=== PATIENT | male | born 1960 | race Caucasian/White ===

== ENCOUNTER → 2017-01-11 | Outpatient (CLI) | payer BC ==
[~2017-01-11] MED LIST: CPR500T PO; CYCL10TA9 PO; DOXY100C2 PO; IBUP-30 PO; KETO10TA PO; LEVO500T2 PO; MULT-35 PO; PRD10T PO; RIVA1TAB PO; TRAM-42 PO
--- OUTSIDE RECORDS SUMMARY | 2017-01-11 08:42 | XMS REPORT | Continuity of Care Document ---
Author Author [facility] Organization [facility] Address Unknown Phone Unavailable Care Team Providers Care Photographic Processor Name Role Phone RolandRobbi PCP [phone] Source Comments Some departments are not documenting in the electronic medical record. If you do not see the information that you expected, contact Release of Information in the Health Information Management department at [phone] for further assistance in locating additional records.[facility] Active Allergies and Adverse Reactions No Known Allergies Current Medications Prescription Sig. Disp. Refills Start End Date Status Date ibuprofen (MOTRIN) 400 mg Take 200 mg by mouth Active tablet daily as needed for Pain. calcium carbonate (TUMS) Take 2,000 mg by mouth Active 500 mg (200 mg elemental daily. 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 Recurrent joint pain 08/02/2015 Social History Tobacco Use Types Packs/Day Years Used Date Never Smoker Smokeless Tobacco: Never Used Alcohol Use Drinks/Week oz/Week Comments No 0 Standard 0.0 drinks or equivalent Last Filed Vital Signs Vital Sign Reading Time Taken Blood Pressure 128/76 08/11/2015 2:24 PM CDT Pulse 76 08/11/2015 2:24 PM CDT Temperature 36.9 C (98.4 F) 08/11/2015 2:24 PM CDT Respiratory Rate 12 08/11/2015 2:24 PM CDT Height 1.88 m (6' 2") 08/11/2015 2:24 PM CDT Weight 96.163 kg (212 lb) 08/11/2015 2:24 PM CDT Body Mass Index 27.21 08/11/2015 2:24 PM CDT Oxygen Saturation - - Plan of Care Health Maintenance Due Date Last Done Comments Hepatitis C Screening 1960 Physical (Comprehensive) 1965 Exam Pertussis Vaccine 1969 Tetanus Vaccine 1975 Colorectal Cancer 2008 Screening Influenza Vaccine 07/14/2016 Results from Last 3 Months Not on file
[2017-01-11 09:15] LABS: ALANINE AMINOTRANSFERASE 15 U/L (0-55); ALBUMIN 3.8 G/DL (3.2-4.5); ANION GAP 10 MMOL/L (5-14); ASPARTATE AMINO TRANSFERASE 18 U/L (5-34); BILIRUBIN,TOTAL 0.6 MG/DL (0.1-1.0); BLOOD UREA NITROGEN 11 MG/DL (7-18); BUN/CREATININE RATIO 11; CALCIUM 9.3 MG/DL (8.5-10.1); CARBON DIOXIDE 25 MMOL/L (21-32); CHLORIDE 106 MMOL/L (98-107); GFR ESTIMATED > 60; GLUCOSE 75 MG/DL (70-105); POTASSIUM 4.4 MMOL/L (3.6-5.0); SODIUM 141 MMOL/L (135-145); TOTAL PROTEIN 6.5 G/DL (6.4-8.2)
== END ==
LOC: LAB 08:40
PROVIDERS: ATTEND Internal Medicine Critical Care Medicine
DX: I26.99 Other pulmonary embolism without acute cor pulmonale (principal)
CPT/HCPCS: 36415; 80053

== ENCOUNTER → 2017-01-19 | Outpatient (CLI) | payer BC ==
[~2017-01-19] MED LIST changes: +CATHETER FLUSH 10 ML SYR IV PRN; +IOHEXOL 350 MG/ML 150 ML (OMNIPAQUE 350) VIAL IV ONE; +NS 100 ML (IVPB) BAG IV ONE
--- OUTSIDE RECORDS SUMMARY | 2017-01-19 11:50 | XMS REPORT | Continuity of Care Document ---
Author Author [facility] Organization [facility] Address Unknown Phone Unavailable Care Team Providers Care Transmission Specialist Name Role Phone RolandRobbi PCP [phone] Source Comments Some departments are not documenting in the electronic medical record. If you do not see the information that you expected, contact Release of Information in the Health Information Management department at [phone] for further assistance in locating additional records.[facility] Active Allergies and Adverse Reactions No [...]
--- NOTE | 2017-01-19 13:17 | Diagnostic Imaging Report ---
INDICATION: History of DVT in right popliteal vein. Right leg swelling in calf. Comparison study: Right lower extremity venous Doppler dated 07/07/2016. TECHNIQUE: Right lower extremity venous Doppler with color flow Doppler. Compression, augmentation, and grayscale imaging was obtained. FINDINGS: Right lower extremity venous Doppler demonstrates occlusive thrombus in the popliteal vein. This appears fairly similar to the previous exam from June. Remainder of the venous system appears normal. IMPRESSION: There is current or persistent thrombus which occludes the popliteal vein. Remainder of the deep venous system is normal. Dictated by: Dictated on workstation # [id number]
--- NOTE | 2017-01-19 16:05 | Diagnostic Imaging Report ---
PROCEDURE: CT angiography of the chest with contrast. TECHNIQUE: Multiple contiguous axial images were obtained through the chest after uneventful bolus administration of intravenous contrast. Reconstructed CTA MIP acquisitions were also performed. INDICATION: History of PE, right leg swelling, shortness of breath. COMPARISON: Exam compared with study from 08/12/2016 as well as 06/30/2016. FINDINGS: There were no intraluminal pulmonary arterial filling defects. There were no findings suggestive of recurrent pulmonary arterial embolus. The thoracic aorta is patent and nonaneurysmal. There is no pericardial effusion. There is a small hiatal hernia. A minute right pleural effusion is nearly resolved when compared to the prior. Right basilar infiltrate and atelectasis also show essential resolution with some likely mild residual chronic linear subpleural scarring. There has been no adverse interval development. No pneumothorax found. No acute soft tissue or osseous chest wall pathology. The visualized upper abdomen is nonacute. IMPRESSION: Negative for PE or acute aortic pathology. Near complete resolution of right posterior sulcal pleural-parenchymal opacity. Residual disease likely chronic. No adverse development or acute-appearing abnormality. Dictated by: Dictated on workstation # [id number]
== END ==
LOC: RAD 11:46
PROVIDERS: ATTEND Nurse Practitioner Family
DX: J90 Pleural effusion, not elsewhere classified (principal); M79.89 Other specified soft tissue disorders
CPT/HCPCS: 71275; 93970

== ENCOUNTER 2017-04-27 15:59 | Emergency (ER) | payer BC ==
[~2017-04-27] VITALS: Ht 188 cm; Wt 95.3 kg
[~2017-04-27 15:59] MED LIST changes: -CATHETER FLUSH 10 ML SYR IV PRN; -IOHEXOL 350 MG/ML 150 ML (OMNIPAQUE 350) VIAL IV ONE; -NS 100 ML (IVPB) BAG IV ONE
[2017-04-27 17:09] LABS: BASOPHILS # (AUTO) 0.2 10^3/uL (0.0-0.1); BASOPHILS % (AUTO) 2 % (0-10); EOSINOPHILS # (AUTO) 0.2 10^3/uL (0.0-0.3); EOSINOPHILS % (AUTO) 3 % (0-10); LYMPHOCYTES # (AUTO) 2.4 X 10^3 (1.0-4.0); LYMPHOCYTES % (AUTO) 33 % (12-44); MEAN CORPUSCULAR HEMOGLOBIN 30 PG (25-34); MEAN CORPUSCULAR HGB CONC 34 G/DL (32-36); MEAN CORPUSCULAR VOLUME 89 FL (80-99); MEAN PLATELET VOLUME 10.4 FL (7.4-10.4); MONOCYTES # (AUTO) 0.8 X 10^3 (0.0-1.0); MONOCYTES % (AUTO) 11 % (0-12); NEUTROPHILS # (AUTO) 3.7 X 10^3 (1.8-7.8); NEUTROPHILS % (AUTO) 51 % (42-75); PLATELET COUNT 202 10^3/uL (130-400); RED BLOOD COUNT 4.57 10^6/uL (4.35-5.85); RED CELL DISTRIBUTION WIDTH 12.9 % (10.0-14.5); WHITE BLOOD COUNT 7.3 10^3/uL (4.3-11.0)
[2017-04-27 17:10] LABS: BILIRUBIN,URINE NEGATIVE (NEGATIVE); KETONES,URINE NEGATIVE (NEGATIVE); LEUKOCYTE ESTERASE ,URINE 1+ (NEGATIVE); NITRITE,URINE NEGATIVE (NEGATIVE); PH,URINE 5 (5-9); PROTEIN,URINE 2+ (NEGATIVE); UROBILINOGEN,URINE NORMAL (NORMAL)
[2017-04-27] MEDS ORDERED: NS IV 1000 ML 1,000 ML IV SCH (17:15)
--- NOTE | 2017-04-27 17:20 | ED Abdominal Pain ---
General Chief Complaint: Abdominal/GI Problems Stated Complaint: ABD PAIN Nursing Triage Note: PT AMBULATED TO ROOM, PT STATES HE HAS HAD INCREASED ABD PAIN SINCE MONDAY. NO N/V OR ISSUES GOING TO THE BATHROOM AT THIS TIME. PT STATES HE HAS BEEN TAKING ALOT OF TYLENOL FOR THIS PAIN. PT ALSO COMPLAINS OF GENERALIZED BODY ACHES. Sepsis Screen: No Definite Risk Source of Information: Patient Exam Limitations: No Limitations History of Present Illness Time Seen By Provider: 17:19 Initial Comments To ER with periumbilical abdominal pain. This began last week in the form of diarrhea and diffuse body aches. He had low-grade fevers and just generally felt poorly. This followed a day trip to [facility]. The diarrhea seems to have resolved however his. Buccal abdominal pain has been intensifying over the past 2-3 days. He's been taking a lot of Tylenol to help with the body aches. He states he cannot take NSAIDs due to current use of xarelto from a pulmonary embolism last year Timing/Duration: 1-2 Days Severity/Quality: Cramping Location: Generalized Abdomen Radiation: No Radiation Activities at Onset: None Associated Symptoms: Nausea/Vomiting Allergies and Home Medications Allergies Coded Allergies: No Known Drug Allergies (Unverified , 05/18/13) Home Medications Multivitamin 1 Each Tablet, 1 TAB PO DAILY, (Reported) Rivaroxaban 1 Each Tab.ds.pk, 1 EACH PO UD, #51 15mg by mouth twice daily x 21 days then 20mg by mouth daily Prescribed by: TRISTIN VELASCO on 06/17/16 0657 Review of Systems Constitutional: see HPI EENTM: No Symptoms Reported Respiratory: No Symptoms Reported Cardiovascular: No Symptoms Reported Gastrointestinal: See HPI, Abdominal Pain Genitourinary: No Symptoms Reported Musculoskeletal: no symptoms reported Skin: no symptoms reported Psychiatric/Neurological: No Symptoms Reported Endocrine: No Symptoms Reported Past Xclyeic-Cuidew-Lxknjx Hx Patient Social History Alcohol Use: Denies Use Recreational Drug Use: No Smoking Status: Never a Smoker 2nd Hand Smoke Exposure: No Recent Foreign Travel: No Contact w/Someone Who Travel: No Recent Infectious Disease Expo: No Recent Hopitalizations: No Immunizations Up To Date Tetanus Booster (TDap): Unknown PED Vaccines UTD: No Seasonal Allergies Seasonal Allergies: Yes (RAGWEED) Surgeries HX Surgeries: Yes (RIGHT ANKLE FX/ORIF) Surgeries: Orthopedic Respiratory Hx Respiratory Disorders: No (STATES GETS UPPER RESP INFECTIONS FREQUENTLY) Cardiovascular Hx Cardiac Disorders: No Neurological Hx Neurological Disorders: No Reproductive System Hx Reproductive Disorders: No Sexually Transmitted Disease: No HIV/AIDS: No Genitourinary Hx Genitourinary Disorders: No Gastrointestinal Hx Gastrointestinal Disorders: Yes ("IF I EAT LATE, I GET REFLUX") Gastrointestinal Disorders: Gastroesophageal Reflux Musculoskeletal Hx Musculoskeletal Disorders: Yes (R ANKLE FX/CHRONIC PAIN) Musculoskeletal Disorders: Fractures Endocrine Hx Endocrine Disorders: No HEENT HX ENT Disorders: No Cancer Hx Cancer: No Psychosocial Hx Psychiatric Problems: No Integumentary HX Skin/Integumentary Disorder: No Blood Transfusions Hx Blood Disorders: No Family Medical History Family Medial History: FH: COPD (chronic obstructive pulmonary disease) 19 FATHER, , Age:78, Onset:Unknown FH: breast cancer G8 SISTER, Onset:Unknown FH: lung cancer 19 FATHER, , Age:78, Onset:Unknown Physical Exam Vital Signs VS - Last 72 Hours, by Label 04/27/17 16:28 Temp 98.2 Pulse 87 Resp 20 B/P (MAP) 126/77 Pulse Ox 95 O2 Delivery Room Air Capillary Refill : Less Than 3 Seconds General Appearance: WD/WN, no apparent distress HEENT: PERRL/EOMI, normal ENT inspection Neck: non-tender, full range of motion Respiratory: no respiratory distress, no accessory muscle use Gastrointestinal: normal bowel sounds, non tender, soft Extremities: normal range of motion, non-tender Neurologic/Psychiatric: alert, normal mood/affect, oriented x 3 Skin: normal color, warm/dry Progress/Results/Core Measures Results/Orders Lab Results Laboratory Tests Test 04/27/17 16:22 04/27/17 16:46 Range/Units Urine Color YELLOW Urine Clarity CLEAR Urine pH 5 5-9 Urine Specific [place] 1.025 H 1.016-1.022 Urine Protein 2+ H NEGATIVE Urine Glucose (UA) NEGATIVE NEGATIVE Urine Ketones NEGATIVE NEGATIVE Urine Nitrite NEGATIVE NEGATIVE Urine Bilirubin NEGATIVE NEGATIVE Urine Urobilinogen NORMAL NORMAL MG/DL Urine Leukocyte Esterase 1+ H NEGATIVE Urine RBC (Auto) NEGATIVE NEGATIVE Urine RBC NONE /HPF Urine WBC 2-5 /HPF Urine Squamous Epithelial Cells NONE /HPF Urine Crystals NONE /LPF Urine Bacteria NEGATIVE /HPF Urine Casts NONE /LPF Urine Mucus LARGE H /LPF Urine Culture Indicated NO White Blood Count 7.3 4.3-11.0 10^3/uL Red Blood Count 4.57 4.35-5.85 10^6/uL Hemoglobin 13.8 13.3-17.7 G/DL Hematocrit 41 40-54 % Mean Corpuscular Volume 89 80-99 FL Mean Corpuscular Hemoglobin 30 25-34 PG Mean Corpuscular Hemoglobin Concent 34 32-36 G/DL Red Cell Distribution Width 12.9 10.0-14.5 % Platelet Count 202 130-400 10^3/uL Mean Platelet Volume 10.4 7.4-10.4 FL Neutrophils (%) (Auto) 51 42-75 % Lymphocytes (%) (Auto) 33 12-44 % Monocytes (%) (Auto) 11 0-12 % Eosinophils (%) (Auto) 3 0-10 % Basophils (%) (Auto) 2 0-10 % Neutrophils # (Auto) 3.7 1.8-7.8 X 10^3 Lymphocytes # (Auto) 2.4 1.0-4.0 X 10^3 Monocytes # (Auto) 0.8 0.0-1.0 X 10^3 Eosinophils # (Auto) 0.2 0.0-0.3 10^3/uL Basophils # (Auto) 0.2 H 0.0-0.1 10^3/uL Sodium Level 138 135-145 MMOL/L Potassium Level 3.8 3.6-5.0 MMOL/L Chloride Level 103 98-107 MMOL/L Carbon Dioxide Level 24 21-32 MMOL/L Anion Gap 11 5-14 MMOL/L Blood Urea Nitrogen 15 7-18 MG/DL Creatinine 0.95 0.60-1.30 MG/DL Estimat Glomerular Filtration Rate > 60 BUN/Creatinine Ratio 16 0-20 Glucose Level 113 H 70-105 MG/DL Calcium Level 9.1 8.5-10.1 MG/DL Total Bilirubin 0.6 0.1-1.0 MG/DL Aspartate Amino Transf (AST/SGOT) 21 5-34 U/L Alanine Aminotransferase (ALT/SGPT) 22 0-55 U/L Alkaline Phosphatase 76 40-136 U/L Total Creatine Kinase 68 30-200 U/L Total Protein 6.3 L 6.4-8.2 GM/DL Albumin 4.0 3.2-4.5 GM/DL Lipase 25 8-78 U/L My Orders Orders - CHURCH,PETER J [employer] Cbc With Automated Diff (04/27/17 16:50) Comprehensive Metabolic Panel (04/27/17 16:50) Lipase (04/27/17 16:50) Ua Culture If Indicated (04/27/17 16:50) Ct Abdomen/Pelvis W (04/27/17 16:50) Creatine Kinase (04/27/17 17:10) Ns Iv 1000 Ml (Sodium Chloride 0.9%) (04/27/17 17:15) Iohexol Injection (Omnipaque 350 Mg/Ml 1 (04/27/17 18:00) Ns (Ivpb) (Sodium Chloride 0.9% Ivpb Bag (04/27/17 18:00) Sodium Chloride Flush (Catheter Flush Sy (04/27/17 18:00) Morphine Injection (Morphine Injection (04/27/17 18:45) Lidocaine 2% Viscous 15 Ml (Xylocaine Vi (04/27/17 19:15) Antacid Suspension (Mylanta Suspension (04/27/17 19:15) Medications Given in ED Current Medications Medications Dose Ordered Sig/Haresh Route Start Time Stop Time Status Last Admin Dose Admin Iohexol 100 ml ONCE ONCE IV 04/27/17 18:00 04/27/17 18:02 DC 04/27/17 18:05 100 ML Morphine Sulfate 4 mg ONCE ONCE IVP 04/27/17 18:45 04/27/17 18:46 DC 04/27/17 18:41 4 MG Sodium Chloride 10 ml NEEDED PRN IV 04/27/17 18:00 04/27/17 18:06 10 ML Sodium Chloride 100 ml ONCE ONCE IV 04/27/17 18:00 04/27/17 18:02 DC 04/27/17 18:06 80 ML Vital Signs/I&O Vital Sign - Last 12Hours 04/27/17 16:28 Temp 98.2 Pulse 87 Resp 20 B/P (MAP) 126/77 Pulse Ox 95 O2 Delivery Room Air Blood Pressure Mean: 93 Diagnostic Imaging Diagonstic Imaging: CT Comments NAME: ИВАНVIVIEN Levi [facility] REC#: [id number] PT STATUS: REG ER : 1960 PHYSICIAN: LEANNA CHURCH [employer] ADMIT DATE: 04/27/17/ER Draft Date of Exam:04/27/17 CT ABDOMEN/PELVIS W PROCEDURE: CT abdomen and pelvis with contrast. TECHNIQUE: Multiple contiguous axial images were obtained through the abdomen and pelvis after administration of intravenous contrast. INDICATION: Abdominal pain. COMPARISON: Study of 01/19/2017. FINDINGS: There has been mild increase in dependent atelectasis in the lung bases. Note is made of low-density throughout the liver, however, no focal hepatic or splenic abnormality is identified. Gallstones in the neck of the gallbladder are again noted. There is no biliary ductal dilatation. There is no evidence of pancreatic lesion. Adrenal glands are stable and unremarkable. There is no evidence of renal abnormality. There is good opacification of mesenteric and renal arteries without evidence of stenosis or filling defect. There is no free fluid in the abdomen or pelvis. Partially opacified urinary bladder is unremarkable. Iliofemoral arteries are widely patent into the upper thigh. There is herniation of fat into the left inguinal canal. No bowel hernia is identified. IMPRESSION: 1. No evidence of acute vascular abnormality in the abdomen or pelvis. Appendix has a normal appearance and there is no evidence of inflammation or suspicious fluid collection. 2. There is mild dependent atelectasis in the lung bases. Dictated on workstation # [id number] Dict: 04/27/17 1820 Trans: 04/27/17 1838 [facility] [id number] Interpreted by: LIZZY HICKS MD Electronically signed by: Departure Impression Impression: Primary Impression: abdominal pain Additional Impression: Gastritis Disposition: 01 HOME, SELF-CARE Condition: Stable Departure-Patient Inst. Decision time for Depature: 19:16 Referrals: SHANE VELASCO MD (PCP/Family) Primary Care Physician Patient Instructions: Peptic Ulcers (DC) Add. Discharge Instructions: 1. Medication as directed 2. Return to ER for any concerns 3. See your doctor next week for follow-up All discharge instructions reviewed with patient and/or family. Voiced understanding. Scripts Famotidine (Pepcid) 20 Mg Tablet 20 MG PO DAILY, #14 TAB Prov: LEANNA CHURCH [employer] 04/27/17 Pantoprazole Sodium (Protonix) 40 Mg Tablet.dr 40 MG PO DAILY, #20 TAB Prov: LEANNA CHURCH [employer] 04/27/17 LEANNA CHURCH APRN Apr 27, 2017 17:20
[2017-04-27 17:36] LABS: ALANINE AMINOTRANSFERASE 22 U/L (0-55); ANION GAP 11 MMOL/L (5-14); ASPARTATE AMINO TRANSFERASE 21 U/L (5-34); BILIRUBIN,TOTAL 0.6 MG/DL (0.1-1.0); BLOOD UREA NITROGEN 15 MG/DL (7-18); BUN/CREATININE RATIO 16 (0-20); CALCIUM 9.1 MG/DL (8.5-10.1); CARBON DIOXIDE 24 MMOL/L (21-32); CHLORIDE 103 MMOL/L (98-107); CREATININE SERUM 0.95 MG/DL (0.60-1.30); GFR ESTIMATED > 60; GLUCOSE 113 MG/DL (70-105); HEMOLYSIS 6 (0-29); ICTERUS 0.6 (0-1.9); LIPASE 25 U/L (8-78); LIPEMIA 3 (0-49); POTASSIUM 3.8 MMOL/L (3.6-5.0); SODIUM 138 MMOL/L (135-145); TOTAL PROTEIN 6.3 GM/DL (6.4-8.2)
[2017-04-27] MEDS ORDERED: CATHETER FLUSH 10 ML SYR IV PRN (18:00)
[2017-04-27] MEDS ORDERED: IOHEXOL 350 MG/ML 100 ML (OMNIPAQUE 350) VIAL IV ONE (18:00)
[2017-04-27] MEDS ORDERED: NS 100 ML (IVPB) BAG IV ONE (18:00)
--- NOTE | 2017-04-27 18:38 | Diagnostic Imaging Report ---
PROCEDURE: CT abdomen and pelvis with contrast. TECHNIQUE: Multiple contiguous axial images were obtained through the abdomen and pelvis after administration of intravenous contrast. INDICATION: Abdominal pain. COMPARISON: Study of 01/19/2017. FINDINGS: There has been mild increase in dependent atelectasis in the lung bases. Note is made of low-density throughout the liver, however, no focal hepatic or splenic abnormality is identified. Gallstones in the neck of the gallbladder are again noted. There is no biliary ductal dilatation. There is no evidence of pancreatic lesion. Adrenal glands are stable and unremarkable. There is no evidence of renal abnormality. There is good opacification of mesenteric and renal arteries without evidence of stenosis or filling defect. There is no free fluid in the abdomen or pelvis. Partially opacified urinary bladder is unremarkable. Iliofemoral arteries are widely patent into the upper thigh. There is herniation of fat into the left inguinal canal. No bowel hernia is identified. IMPRESSION: 1. No evidence of acute vascular abnormality in the abdomen or pelvis. Appendix has a normal appearance and there is no evidence of inflammation or suspicious fluid collection. 2. There is mild dependent atelectasis in the lung bases. Dictated by: Dictated on workstation # [id number]
[2017-04-27] MEDS ORDERED: morphine INJ 10 MG/ML 1ML (SYR OR VIAL) IVP ONE (18:45)
[2017-04-27] MEDS ORDERED: ANTACID SUSP 30 ML UDC (MYLANTA) PO ONE (19:15)
[2017-04-27] MEDS ORDERED: LIDOCAINE 2% VISCOUS 15 ML UDC PO ONE (19:15)
[2017-04-27] MEDS ORDERED: PANT40TA2 PO (19:17)
[2017-04-27] MEDS ORDERED: FAMO-119 PO (19:17)
[2017-04-27 19:33] VITALS: BP 126/77
== END 2017-04-27 19:33 | disposition home or self-care (01) ==
LOC: EDUNIT# 15:59 → ER 16:00
DX: K29.70 Gastritis, unspecified, without bleeding (principal)
CPT/HCPCS: 36415; 74177; 80053; 81000; 82550; 83690; 85025

== ENCOUNTER → 2017-08-04 | Outpatient (CLI) | payer BC ==
[~2017-08-04] MED LIST changes: +FAMO-119 PO; +PANT40TA2 PO
[2017-08-04 09:17] LABS: ALANINE AMINOTRANSFERASE 32 U/L (0-55); ANION GAP 8 MMOL/L (5-14); ASPARTATE AMINO TRANSFERASE 26 U/L (5-34); BILIRUBIN,TOTAL 0.6 MG/DL (0.1-1.0); BLOOD UREA NITROGEN 16 MG/DL (7-18); BUN/CREATININE RATIO 15; CALCIUM 9.4 MG/DL (8.5-10.1); CARBON DIOXIDE 26 MMOL/L (21-32); CHLORIDE 105 MMOL/L (98-107); CREATININE SERUM 1.04 MG/DL (0.60-1.30); GFR ESTIMATED > 60; GLUCOSE 106 MG/DL (70-105); POTASSIUM 4.1 MMOL/L (3.6-5.0); SODIUM 139 MMOL/L (135-145); TOTAL PROTEIN 7.4 GM/DL (6.4-8.2)
== END ==
LOC: LAB 08:43
PROVIDERS: ATTEND Nurse Practitioner Family
DX: M79.89 Other specified soft tissue disorders (principal); R06.02 Shortness of breath; Z86.718 Personal history of other venous thrombosis and embolism
CPT/HCPCS: 36415; 80053

== ENCOUNTER → 2017-09-06 | Outpatient (CLI) | payer BC ==
--- NOTE | 2017-09-06 10:58 | Diagnostic Imaging Report ---
EXAMINATION: Bilateral lower extremity duplex venous ultrasound. TECHNIQUE: DVT protocol. Multiple sonographic images with color Doppler and waveform interrogation were performed of the lower extremity veins, bilaterally, with compression and augmentation maneuvers. INDICATION: Followup right popliteal vein DVT. FINDINGS: The lower extremity veins from the common femoral veins to below the knee veins were examined with normal color-flow, compressibility, and normal waveform demonstrated in the left lower extremity. There is only partial compressibility of the right popliteal vein which demonstrates nonocclusive thrombus involving a segment that is about 3 cm in length. This appears similar to the previous examination from 01/19/2017. The remaining right lower extremity veins including the common femoral, profunda, femoral vein, and great saphenous vein appear patent. The right peroneal trunk and posterior tibial veins are patent. IMPRESSION: 1. 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 2. No evidence of DVT in the left lower extremity. Dictated by: Dictated on workstation # [id number]
== END ==
LOC: RAD 09:09
PROVIDERS: ATTEND Nurse Practitioner Family
DX: I82.431 Acute embolism and thrombosis of right popliteal vein (principal)
CPT/HCPCS: 93970

== ENCOUNTER 2018-05-31 13:16 | Emergency (ER) | payer BC ==
[~2018-05-31] VITALS: Ht 185.4 cm; Wt 95.3 kg
[2018-05-31 14:07] LABS: BASOPHILS # (AUTO) 0.1 10^3/uL (0.0-0.1); BASOPHILS % (AUTO) 1 % (0-10); EOSINOPHILS # (AUTO) 0.2 10^3/uL (0.0-0.3); EOSINOPHILS % (AUTO) 2 % (0-10); HEMATOCRIT 44 % (40-54); LYMPHOCYTES % (AUTO) 23 % (12-44); MEAN CORPUSCULAR HEMOGLOBIN 31 PG (25-34); MEAN CORPUSCULAR HGB CONC 34 G/DL (32-36); MEAN CORPUSCULAR VOLUME 90 FL (80-99); MEAN PLATELET VOLUME 10.2 FL (7.4-10.4); MONOCYTES # (AUTO) 0.7 X 10^3 (0.0-1.0); MONOCYTES % (AUTO) 8 % (0-12); NEUTROPHILS # (AUTO) 5.7 X 10^3 (1.8-7.8); NEUTROPHILS % (AUTO) 66 % (42-75); PLATELET COUNT 229 10^3/uL (130-400); RED BLOOD COUNT 4.88 10^6/uL (4.35-5.85); RED CELL DISTRIBUTION WIDTH 13.5 % (10.0-14.5); WHITE BLOOD COUNT 8.6 10^3/uL (4.3-11.0)
[2018-05-31 14:13] LABS: BILIRUBIN,URINE NEGATIVE (NEGATIVE); CLARITY,URINE CLEAR; COLOR,URINE YELLOW; GLUCOSE, URINE (UA) NEGATIVE (NEGATIVE); KETONES,URINE NEGATIVE (NEGATIVE); LEUKOCYTE ESTERASE ,URINE NEGATIVE (NEGATIVE); NITRITE,URINE NEGATIVE (NEGATIVE); PH,URINE 7 (5-9); PROTEIN,URINE NEGATIVE (NEGATIVE); UROBILINOGEN,URINE NORMAL (NORMAL)
--- OUTSIDE RECORDS SUMMARY | 2018-05-31 14:15 | XMS REPORT | Clinical Summary ---
Author Author [facility] Organization [facility] Address Unknown Phone Unavailable Care Team Providers Care National Guard Member Name Role Phone Katherine Shetty MD Unavailable Unavailable Robbi Watkins MD PCP Source Comments Some departments are not documenting in the electronic medical record. If you do not see the information that you expected, contact Release of Information in the Health Information Management department at [phone] for further assistance in locating additional records.[facility] Allergies No Known Allergies Current Medications Prescription Sig. Disp. Refills Start End Date Status Date ibuprofen (MOTRIN) 400 mg Take 200 mg by mouth Active tablet daily as needed for Pain. calcium carbonate (TUMS) Take 2,000 mg by mouth Active 500 mg (200 mg elemental daily. calcium) chewable tablet chlorhexidine (HIBICLENS) wash body with 25cc (2 1 Bottle 2 08/11/20 Active 4 % topical TBS),rinse,repeat 15 liquidIndications: Hx wash,3x/week, if MRSA infection head/hair to be washed:wet body/hair,wash with 25cc close eyes rinse thoroughly Active Problems Problem Noted Date Rash 08/11/2015 Hx MRSA infection 08/02/2015 Recurrent joint pain 08/02/2015 Social History Tobacco Use Types Packs/Day Years Used Date Never Smoker Smokeless Tobacco: Never Used Alcohol Use Drinks/Week oz/Week Comments No 0 Standard 0.0 drinks or equivalent Sex Assigned at Date Recorded Not on file Last Filed Vital Signs Vital Sign Reading Time Taken Blood Pressure 128/76 08/11/2015 2:24 PM CDT Pulse 76 08/11/2015 2:24 PM CDT Temperature 36.9 C (98.4 F) 08/11/2015 2:24 PM CDT Respiratory Rate 12 08/11/2015 2:24 PM CDT Oxygen Saturation - - Inhaled Oxygen - - Concentration Weight 96.2 kg (212 lb) 08/11/2015 2:24 PM CDT Height 188 cm (6' 2") 08/11/2015 2:24 PM CDT Body Mass Index 27.22 08/11/2015 2:24 PM CDT Plan of Treatment Health Maintenance Due Date Last Done Comments HEPATITIS C SCREENING 1960 PHYSICAL (COMPREHENSIVE) 1965 EXAM PERTUSSIS VACCINE 1969 HIV SCREENING 1973 TETANUS VACCINE 1975 COLORECTAL CANCER 2008 SCREENING SHINGLES RECOMBINANT 2008 VACCINE (1 of 2) INFLUENZA VACCINE 08/13/2018 Results Not on filefrom Last 3 Months
--- NOTE | 2018-05-31 14:16 | ED General ---
General Chief Complaint: General Problems/Pain Stated Complaint: UPPER RIGHT ABD PAIN Nursing Triage Note: PATIENT HERE FOR CONCERNS ABOUT A PULMONARY EMBOLISM. HE HAD ONE TWO YEARS AGO AND IS NOT CURRENTLY ON XARELTO. HE SAW A CLINIC NEAR HIS WORK AND WAS TOLD HE HAD A PULM EFFUSION, HOWEVER THIS IS WHAT HE WAS TOLD TWO YEARS AGO WHEN IT ENDED UP BEING PE. PATIENT STATES HE FEELS EXACTLY THE SAME HE DID PRIOR TO HIS PE. Nursing Sepsis Screen: No Definite Risk Source of Information: Patient Exam Limitations: No Limitations History of Present Illness Date Seen by Provider: May 31, 2018 Time Seen by Provider: 13:27 Initial Comments This 57-year-old gentleman presents to the emergency room with complaints of right flank and lower lateral chest pain that started a couple of days ago. He has some associated shortness of breath. 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 Patient travels quite often driving to and from [place] for work. He was on Xarelto until last August. Patient saw a nurse practitioner near his work who performed a chest x-ray and felt he likely had a pleural effusion. He has had some mild cough and shortness of air in recent days but denies any fever. He denies any urine changes, nausea, vomiting, or diarrhea. He has quite anxious at the moment because of his prior history with DVT and PE. Allergies and Home Medications Allergies Coded Allergies: No Known Drug Allergies (Unverified , 05/18/13) Home Medications Multivitamin 1 Each Tablet, 1 TAB PO DAILY, (Reported) Patient Home Medication List Home Medication List Reviewed: Yes Review of Systems Constitutional: no symptoms reported EENTM: no symptoms reported Respiratory: see HPI Cardiovascular: see HPI Gastrointestinal: see HPI Genitourinary: no symptoms reported Musculoskeletal: no symptoms reported Skin: no symptoms reported Psychiatric/Neurological: See HPI Hematologic/Lymphatic: See HPI Immunological/Allergic: no symptoms reported Past Grqasrg-Alllka-Bfxxtw Hx Past Med/Social Hx: Reviewed and Corrections made Patient Social History Alcohol Use: Denies Use Recreational Drug Use: No Smoking Status: Never a Smoker 2nd Hand Smoke Exposure: No Recent Foreign Travel: No Contact w/Someone Who Travel: No Recent Infectious Disease Expo: No Recent Hopitalizations: No Physical Abuse: No Sexual Abuse: No Immunizations Up To Date Tetanus Booster (TDap): Unknown PED Vaccines UTD: No Seasonal Allergies Seasonal Allergies: Yes (RAGWEED) Past Medical History Surgeries: Yes (RIGHT ANKLE FX/ORIF) Orthopedic Respiratory: Yes Pulmonary Embolism Currently Using CPAP: No Currently Using BIPAP: No Cardiac: Yes Deep Vein Thrombosis Neurological: No Reproductive Disorders: No Sexually Transmitted Disease: No HIV/AIDS: No Genitourinary: No Gastrointestinal: Yes ("IF I EAT LATE, I GET REFLUX") Gastroesophageal Reflux Musculoskeletal: Yes (R ANKLE FX/CHRONIC PAIN) Fractures Endocrine: No HEENT: No Cancer: No Psychosocial: No Nursing Suicide Risk Score: 0 Integumentary: No Blood Disorders: No Family Medical History Reviewed Nursing Family Hx FH: COPD (chronic obstructive pulmonary disease) 19 FATHER, , Age:78, Onset:Unknown FH: breast cancer G8 SISTER, Onset:Unknown FH: lung cancer 19 FATHER, , Age:78, Onset:Unknown Physical Exam Vital Signs Vital Signs - First Documented 05/31/18 13:24 Temp 98.5 Pulse 81 Resp 18 B/P (MAP) 136/81 (99) Pulse Ox 96 Capillary Refill : Less Than 3 Seconds Height, Weight, BMI Height: 6'1.00" Weight: 210lbs. 0oz. 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) Neurologic/Psychiatric: Alert, Oriented x3, No Motor/Sensory Deficits, multi care technician II- XII Norm as Tested, Other (anxious) Skin: Normal Color, Warm/Dry Progress/Results/Core Measures Suspected Sepsis Recent Fever Within 48 Hours: No Infection Criteria Present: None New/Unexplained Altered Menta: No Sepsis Screen: No Definite Risk SIRS Temperature:98.5 Pulse: 81 Respiratory Rate: 18 Laboratory Tests 05/31/18 14:00: White Blood Count 8.6 Blood Pressure 136 /81 Mean: 99 Laboratory Tests 05/31/18 14:00: Creatinine 1.08, Platelet Count 229, Total Bilirubin 0.6 Results/Orders Lab Results Laboratory Tests Test 05/31/18 14:00 Range/Units White Blood Count 8.6 4.3-11.0 10^3/uL Red Blood Count 4.88 4.35-5.85 10^6/uL Hemoglobin 15.0 13.3-17.7 G/DL Hematocrit 44 40-54 % Mean Corpuscular Volume 90 80-99 FL Mean Corpuscular Hemoglobin 31 25-34 PG Mean Corpuscular Hemoglobin Concent 34 32-36 G/DL Red Cell Distribution Width 13.5 10.0-14.5 % Platelet Count 229 130-400 10^3/uL Mean Platelet Volume 10.2 7.4-10.4 FL Neutrophils (%) (Auto) 66 42-75 % Lymphocytes (%) (Auto) 23 12-44 % Monocytes (%) (Auto) 8 0-12 % Eosinophils (%) (Auto) 2 0-10 % Basophils (%) (Auto) 1 0-10 % Neutrophils # (Auto) 5.7 1.8-7.8 X 10^3 Lymphocytes # (Auto) 2.0 1.0-4.0 X 10^3 Monocytes # (Auto) 0.7 0.0-1.0 X 10^3 Eosinophils # (Auto) 0.2 0.0-0.3 10^3/uL Basophils # (Auto) 0.1 0.0-0.1 10^3/uL D-Dimer 0.39 0.00-0.49 UG/ML Urine Color YELLOW Urine Clarity CLEAR Urine pH 7 5-9 Urine Specific [place] 1.010 L 1.016-1.022 Urine Protein NEGATIVE NEGATIVE Urine Glucose (UA) NEGATIVE NEGATIVE Urine Ketones NEGATIVE NEGATIVE Urine Nitrite NEGATIVE NEGATIVE Urine Bilirubin NEGATIVE NEGATIVE Urine Urobilinogen NORMAL NORMAL MG/DL Urine Leukocyte Esterase NEGATIVE NEGATIVE Urine RBC (Auto) NEGATIVE NEGATIVE Urine RBC NONE /HPF Urine WBC NONE /HPF Urine Crystals PRESENT H /LPF Urine Amorphous Sediment FEW NAEEM PHOSPHATE H /LPF Urine Bacteria TRACE /HPF Urine Casts NONE /LPF Urine Mucus NEGATIVE /LPF Urine Culture Indicated NO Sodium Level 140 135-145 MMOL/L Potassium Level 4.5 3.6-5.0 MMOL/L Chloride Level 105 98-107 MMOL/L Carbon Dioxide Level 28 21-32 MMOL/L Anion Gap 7 5-14 MMOL/L Blood Urea Nitrogen 20 H 7-18 MG/DL Creatinine 1.08 0.60-1.30 MG/DL Estimat Glomerular Filtration Rate > 60 BUN/Creatinine Ratio 19 Glucose Level 105 70-105 MG/DL Calcium Level 10.1 8.5-10.1 MG/DL Total Bilirubin 0.6 0.1-1.0 MG/DL Aspartate Amino Transf (AST/SGOT) 25 5-34 U/L Alanine Aminotransferase (ALT/SGPT) 28 0-55 U/L Alkaline Phosphatase 76 40-136 U/L Total Protein 7.4 6.4-8.2 GM/DL Albumin 4.3 3.2-4.5 GM/DL My Orders Orders - LIDA MÉNDEZ MD Cbc With Automated Diff (05/31/18 13:46) Comprehensive Metabolic Panel (05/31/18 13:46) Fibrin Degradation Products (05/31/18 13:46) Ua Culture If Indicated (05/31/18 13:46) Saline Lock/Iv-Start (05/31/18 13:46) Chest Pa/Lat (2 View) (05/31/18 13:46) Us Gallbladder [id number] (05/31/18 13:46) Vital Signs/I&O 05/31/18 13:24 Temp 98.5 Pulse 81 Resp 18 B/P (MAP) 136/81 (99) Pulse Ox 96 Capillary Refill : Less Than 3 Seconds Blood Pressure Mean: 99 Progress Note : Progress Note Lab evaluation was unremarkable including d-dimer. Urine showed no evidence of hematuria to suggest ureteral stone. Chest x-ray noted probable scarring or atelectasis in the right lower lung. Effusion was not seen. Diagnostic Imaging Diagonstic Imaging: Xray Plain Films/CT/US/NM/MRI: chest Comments Chest x-ray viewed by me and report reviewed. See report below: NAME: VIVIEN OATES [facility] REC#: [id number] PT STATUS: REG ER : 1960 PHYSICIAN: LIDA MÉNDEZ MD ADMIT DATE: 05/31/18/ER Draft Date of Exam:05/31/18 CHEST PA/LAT (2 VIEW) INDICATION: Chest pain, history of prior pulmonary embolism. PA and lateral chest obtained at 02:49 p.m. and compared to 06/17/2016. Heart and mediastinal silhouette are normal in appearance. There is no focal infiltrate or pneumothorax or gross pleural fluid. There is some scarring or atelectasis in the right lung base with chronic blunting of the right costophrenic angle. IMPRESSION: No acute process in the chest. There is some mild scarring or atelectasis in the right lung base with chronic-appearing blunting of the right costophrenic angle. There is improved aeration of the lung bases compared to 06/17/2016. Dictated on workstation # [id number] Dict: 05/31/18 1434 Trans: 05/31/18 1439 [id number] Interpreted by: SALEEM SOLITARIO MD Diagonstic Imaging: Ultrasound Plain Films/CT/US/NM/MRI: abdomen Comments Gallbladder ultrasound report reviewed. See report below: NAME: VIVIEN OATES [facility] REC#: [id number] PT STATUS: REG ER : 1960 PHYSICIAN: LIDA MÉNDEZ MD ADMIT DATE: 05/31/18/ER Signed Date of Exam: 05/31/18 US GALLBLADDER [id number] EXAM: RIGHT UPPER QUADRANT ULTRASOUND. DATE: May 31, 2018. COMPARISON: CT abdomen and pelvis April 27, 2017. INDICATION: 57-year-old male, right upper quadrant abdominal pain. PROCEDURE: Two-dimensional grayscale and color Doppler ultrasound examination of the right upper quadrant is performed. FINDINGS: Liver: There is suspicion of diffuse fatty infiltration of the liver, although an image demonstrating the liver and kidney in the same image is not well demonstrated for more optimal assessment. The outer liver contours are not grossly nodular. There is no sonographically demonstrated solid or cystic liver lesion. Bile ducts and gallbladder: There are shadowing gallstones. The gallbladder is not distended. There is no gallbladder wall thickening. There is no pericholecystic fluid. The gallbladder wall measures 0.2 cm. The common bile duct is not well seen. There is no intrahepatic bile duct dilation. Right kidney: Unremarkable right kidney. No hydronephrosis. The right kidney measures 11.7 cm x 5.9 cm x 6.0 cm. Pancreas: The pancreas is not well seen. IMPRESSION: 1. Cholelithiasis without evidence of acute cholecystitis. 2. Common bile duct is not well visualized. No intrahepatic bile duct dilation. 3. The pancreas is not well seen. 4. Suspicion of mild diffuse fatty infiltration of the liver. Dictated by: Dictated on workstation # [id number] Dict: 05/31/18 1434 Trans: 05/31/18 1439 Interpreted by: LOIDA ANDRADE MD Electronically signed by: LOIDA ANDRADE MD 05/31/18 1439 Departure Impression Primary Impression: Cholelithiasis Qualified Codes: K80.20 - Calculus of gallbladder without cholecystitis without obstruction Additional Impression: Right upper quadrant pain Disposition: 01 HOME, SELF-CARE Condition: Stable Departure-Patient Inst. Decision time for Depature: 15:02 Referrals: SHANE VELASCO MD (PCP/Family) Primary Care Physician Patient Instructions: Gallstones Add. Discharge Instructions: Keep your appointment with Dr. Sun and have him review your chest x-rays. Eat a low-fat diet. You may take Tylenol up to 1000 mg every 6 hours and/or ibuprofen up to 600 mg every 6 hours as needed for pain. Return to care if symptoms are worsening or if you develop new symptoms such as vomiting, fever over 100, etc. Consider establishing with a general surgeon for evaluation of your gallstones. All discharge instructions reviewed with patient and/or family. Voiced understanding. Copy Copies To 1: BROCK SUN DO Copies To 2: SHANE VELASCO MD, JOSHUA T MD May 31, 2018 14:16
--- OUTSIDE RECORDS SUMMARY | 2018-05-31 14:17 | XMS REPORT | Continuity of Care Document ---
Author Author [facility] Organization [facility] Address Unknown Phone Unavailable Allergies Active Description Code Type Severity Reaction Onset Reported/Identified Relationship to Patient Clinical Status Yes No Known Drug Allergies [id number] Drug Allergy Unknown N/A 05/18/2013 Medications There is no data. Problems Date Dx Coded Attending Type Code Diagnosis Diagnosed By 05/18/2013 JAME OSORIO DO Ot 719.46 JOINT PAIN-L/LEG 05/18/2013 JAME OSORIO DO Ot 726.65 PREPATELLAR BURSITIS 06/17/2015 KRISTA HURST, SHANE R Ot 780.60 06/17/2015 KRISTA HURST, SHANE R Ot 780.8 06/17/2015 KRISTA HURST, SHANE R Ot 780.60 06/17/2015 KRISTA HURST, SHANE R Ot 780.8 06/18/2015 KRISTA HURST, SHANE R Ot 780.60 06/18/2015 KRISTA HURST, SHANE R Ot 780.8 06/18/2015 KRISTA HURST, SHANE R Ot 780.60 06/18/2015 KRISTA HURST, SHANE R Ot 780.8 06/30/2015 KRISTA HURST, SHANE R Ot 780.60 06/30/2015 KRISTA HURST, SHANE R Ot 780.8 07/02/2015 KRISTA HURST, SHANE R Ot 780.60 07/02/2015 KRISTA HURST, SHANE R Ot 780.8 07/02/2015 KRISTA HURST, SHANE R Ot 780.60 07/02/2015 KRISTA HURST, SHANE R Ot 780.8 05/28/2016 JAME OSORIO DO Ot J18.9 PNEUMONIA, UNSPECIFIED ORGANISM 05/28/2016 JAME OSORIO DO Ot R10.32 LEFT LOWER QUADRANT PAIN 05/30/2016 JAME OSORIO DO Ot J18.9 PNEUMONIA, UNSPECIFIED ORGANISM 05/30/2016 DEVON DO, JAME K Ot R10.32 LEFT LOWER QUADRANT PAIN 05/30/2016 DEVON DO, JAME K Ot J18.9 PNEUMONIA, UNSPECIFIED ORGANISM 05/30/2016 DEVON DO, JAME K Ot R10.32 LEFT LOWER QUADRANT PAIN 06/06/2016 KRISTA HURST, SHANE R Ot 780.60 FEVER, UNSPECIFIED 06/06/2016 KRISTA HURST, SHANE R Ot 780.8 GENERALIZED HYPERHIDROSIS 06/06/2016 SHANE VELASCO MD R Ot 780.60 FEVER, UNSPECIFIED 06/06/2016 KRISTA HURST, SHANE R Ot 780.8 GENERALIZED HYPERHIDROSIS 06/07/2016 KRISTA HURST, SHANE R Ot R91.8 OTHER NONSPECIFIC ABNORMAL FINDING OF GERALDINE 06/15/2016 KRISTA HURST, SHANE R Ot I26.99 OTHER PULMONARY EMBOLISM WITHOUT ACUTE C 06/15/2016 SHANE VELASCO MD R Ot I50.9 HEART FAILURE, UNSPECIFIED 06/15/2016 SHANE VELASCO MD R Ot J18.9 PNEUMONIA, UNSPECIFIED ORGANISM 06/16/2016 JACLYN VELASCO MDYD R Ot I26.99 OTHER PULMONARY EMBOLISM WITHOUT ACUTE C 06/16/2016 SHANE VELASCO MD R Ot I50.9 HEART FAILURE, UNSPECIFIED 06/16/2016 SHANE VELASCO MD R Ot J18.9 PNEUMONIA, UNSPECIFIED ORGANISM 06/16/2016 KRISTA HURST SHANE R Ot I26.99 OTHER PULMONARY EMBOLISM WITHOUT ACUTE C 06/16/2016 SHANE VELASCO MD R Ot I50.9 HEART FAILURE, UNSPECIFIED 06/16/2016 KRISTA HURST SHANE R Ot J18.9 PNEUMONIA, UNSPECIFIED ORGANISM 06/16/2016 KRISTA HURST, SHANE R Ot I26.99 OTHER PULMONARY EMBOLISM WITHOUT ACUTE C 06/16/2016 SHANE VELASCO MD R Ot I50.9 HEART FAILURE, UNSPECIFIED 06/16/2016 SHANE VELASCO MD R Ot J18.9 PNEUMONIA, UNSPECIFIED ORGANISM 06/16/2016 KRISTA HURST SHANE R Ot I26.99 OTHER PULMONARY EMBOLISM WITHOUT ACUTE C 06/16/2016 KRISTA HURST SHANE R Ot I50.9 HEART FAILURE, UNSPECIFIED 06/16/2016 KRISTA HURST SHANE R Ot J18.9 PNEUMONIA, UNSPECIFIED ORGANISM 06/17/2016 KRISTA HURST SHANE R Ot I26.99 OTHER PULMONARY EMBOLISM WITHOUT ACUTE C 06/17/2016 KRISTA HURST SHANE R Ot I50.9 HEART FAILURE, UNSPECIFIED 06/17/2016 SHANE VELASCO MD R Ot J18.9 PNEUMONIA, UNSPECIFIED ORGANISM 06/17/2016 SHANE VELASCO MD R Ot I26.99 OTHER PULMONARY EMBOLISM WITHOUT ACUTE C 06/17/2016 JACLYN VELASCO MDYD R Ot I50.9 HEART FAILURE, UNSPECIFIED 06/17/2016 KRISTA HURST SHANE R Ot I82.431 ACUTE EMBOLISM AND THROMBOSIS OF RIGHT P 06/17/2016 SHANE VELASCO MD R Ot J18.9 PNEUMONIA, UNSPECIFIED ORGANISM 06/24/2016 SHANE VELASCO MD R Ot R91.8 OTHER NONSPECIFIC ABNORMAL FINDING OF GERALDINE 06/30/2016 SHANE VELASCO MD R Ot R04.2 HEMOPTYSIS 06/30/2016 KRISTA HURST SHANE R Ot Z86.711 PERSONAL HISTORY OF PULMONARY EMBOLISM 07/01/2016 KRISTA HURST SHANE R Ot R04.2 HEMOPTYSIS 07/01/2016 KRISTA HURST SHANE R Ot Z86.711 PERSONAL HISTORY OF PULMONARY EMBOLISM 07/06/2016 KRISTA HURST SHANE R Ot R04.2 HEMOPTYSIS 07/06/2016 KRISTA HURST SHANE R Ot Z86.711 PERSONAL HISTORY OF PULMONARY EMBOLISM 07/13/2016 KRISTA HURST SHANE R Ot 780.60 FEVER, UNSPECIFIED 07/13/2016 KRISTA HURST SHANE R Ot 780.8 GENERALIZED HYPERHIDROSIS 07/13/2016 KRISTA HURST SHANE R Ot 780.60 FEVER, UNSPECIFIED 07/13/2016 KRISTA HURST SHANE R Ot 780.8 GENERALIZED HYPERHIDROSIS 07/13/2016 KRISTA HURST SHANE R Ot R91.8 OTHER NONSPECIFIC ABNORMAL FINDING OF GERALDINE 07/13/2016 KRISTA HURST SHANE R Ot R04.2 HEMOPTYSIS 07/13/2016 KRISTA HURST SHANE R Ot Z86.711 PERSONAL HISTORY OF PULMONARY EMBOLISM 07/13/2016 LAKESHA FONSECA JOURNEYMAN PIPE FITTER Ot I26.99 OTHER PULMONARY EMBOLISM WITHOUT ACUTE C 07/13/2016 LAKESHA FONSECA JOURNEYMAN PIPE FITTER Ot I82.411 ACUTE EMBOLISM AND THROMBOSIS OF RIGHT F 07/13/2016 LAKESHA FONSECA JOURNEYMAN PIPE FITTER Ot I82.431 ACUTE EMBOLISM AND THROMBOSIS OF RIGHT P 07/13/2016 LAKESHA FONSECA JOURNEYMAN PIPE FITTER Ot J90 PLEURAL EFFUSION, NOT ELSEWHERE CLASSIFI 07/13/2016 LAKESHA FONSECA JOURNEYMAN PIPE FITTER Ot R05 COUGH 07/13/2016 LAKESHA FONSECA JOURNEYMAN PIPE FITTER Ot R06.02 SHORTNESS OF BREATH 07/13/2016 LAKESHA FONSECA JOURNEYMAN PIPE FITTER Ot Z79.01 RESIDENTIAL (CURRENT) USE OF ANTICOAGULANT 07/14/2016 SHANE VELASCO MD R Ot R04.2 HEMOPTYSIS 07/14/2016 JACLYN VELASCO MDYD R Ot Z86.711 PERSONAL HISTORY OF PULMONARY EMBOLISM 07/21/2016 LAKESHA FONSECA JOURNEYMAN PIPE FITTER Ot I26.99 OTHER PULMONARY EMBOLISM WITHOUT ACUTE C 07/21/2016 LAKESHA FONSECA JOURNEYMAN PIPE FITTER Ot I82.411 ACUTE EMBOLISM AND THROMBOSIS OF RIGHT F 07/21/2016 LAKSEHA FONSECA JOURNEYMAN PIPE FITTER Ot I82.431 ACUTE EMBOLISM AND THROMBOSIS OF RIGHT P 07/21/2016 LAKESHA FONSECA JOURNEYMAN PIPE FITTER Ot J90 PLEURAL EFFUSION, NOT ELSEWHERE CLASSIFI 07/21/2016 LAKESHA FONSECA JOURNEYMAN PIPE FITTER Ot R05 COUGH 07/21/2016 LAKESHA FONSECA JOURNEYMAN PIPE FITTER Ot R06.02 SHORTNESS OF BREATH 07/21/2016 LAKESHA FONSECA JOURNEYMAN PIPE FITTER Ot 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 08/12/2016 KRISTA HURST SHANE R Ot 780.60 FEVER, UNSPECIFIED 08/12/2016 KRISTA HURST SHANE R Ot 780.8 GENERALIZED HYPERHIDROSIS 08/12/2016 SHANE VELASCO MD R Ot 780.60 FEVER, UNSPECIFIED 08/12/2016 KRISTA HURST SHANE R Ot 780.8 GENERALIZED HYPERHIDROSIS 08/12/2016 KRISTA HURST SHANE R Ot R91.8 OTHER NONSPECIFIC ABNORMAL FINDING OF GERALDINE 08/12/2016 KRISTA HURST SHANE R Ot R04.2 HEMOPTYSIS 08/12/2016 KRISTA HURST SHANE R Ot Z86.711 PERSONAL HISTORY OF PULMONARY EMBOLISM 08/12/2016 LAKESHA FONSECA JOURNEYMAN PIPE FITTER Ot I26.99 OTHER PULMONARY EMBOLISM WITHOUT ACUTE C 08/12/2016 LAKESHA FONSECA JOURNEYMAN PIPE FITTER Ot I82.411 ACUTE EMBOLISM AND THROMBOSIS OF RIGHT F 08/12/2016 LAKESHA FONSECA JOURNEYMAN PIPE FITTER Ot I82.431 ACUTE EMBOLISM AND THROMBOSIS OF RIGHT P 08/12/2016 LAKESHA FONSECA JOURNEYMAN PIPE FITTER Ot J90 PLEURAL EFFUSION, NOT ELSEWHERE CLASSIFI 08/12/2016 LAKESHA FONSECA JOURNEYMAN PIPE FITTER Ot R05 COUGH 08/12/2016 LAKESHA FONSECA JOURNEYMAN PIPE FITTER Ot R06.02 SHORTNESS OF BREATH 08/12/2016 LAKESHA FONSECA JOURNEYMAN PIPE FITTER Ot Z79.01 RESIDENTIAL (CURRENT) USE OF ANTICOAGULANT 08/15/2016 LAKESHA FONSECA JOURNEYMAN PIPE FITTER Ot I26.99 OTHER PULMONARY EMBOLISM WITHOUT ACUTE C 08/15/2016 LAKESHA FONSECA JOURNEYMAN PIPE FITTER Ot I82.409 ACUTE EMBOLISM AND THOMBOS UNSP DEEP VN 08/15/2016 LAKESHA FONSECA JOURNEYMAN PIPE FITTER Ot J90 PLEURAL EFFUSION, NOT ELSEWHERE CLASSIFI 08/15/2016 LAKESHA FONSECA JOURNEYMAN PIPE FITTER Ot R05 COUGH 08/15/2016 LAKESHA FONSECA JOURNEYMAN PIPE FITTER Ot R06.02 SHORTNESS OF BREATH 08/15/2016 LAKESHA FONSECA JOURNEYMAN PIPE FITTER Ot Z79.01 RESIDENTIAL (CURRENT) USE OF ANTICOAGULANT 08/15/2016 KRISTA HURST SHANE R Ot 780.60 FEVER, UNSPECIFIED 08/15/2016 KRISTA HURST SHANE R Ot 780.8 GENERALIZED HYPERHIDROSIS 08/15/2016 KRISTA HURST SHANE R Ot 780.60 FEVER, UNSPECIFIED 08/15/2016 KRISTA HURST SHANE R Ot 780.8 GENERALIZED HYPERHIDROSIS 08/15/2016 KRISTA HURST SHANE R Ot R91.8 OTHER NONSPECIFIC ABNORMAL FINDING OF GERALDINE 08/15/2016 KRISTA HURST SHANE R Ot R04.2 HEMOPTYSIS 08/15/2016 KRISTA HURST SHANE R Ot Z86.711 PERSONAL HISTORY OF PULMONARY EMBOLISM 08/15/2016 LAKESHA FONSECA JOURNEYMAN PIPE FITTER Ot I26.99 OTHER PULMONARY EMBOLISM WITHOUT ACUTE C 08/15/2016 LAKESHA FONSECA JOURNEYMAN PIPE FITTER Ot I82.409 ACUTE EMBOLISM AND THOMBOS UNSP DEEP VN 08/15/2016 LAKESHA FONSECA JOURNEYMAN PIPE FITTER Ot J90 PLEURAL EFFUSION, NOT ELSEWHERE CLASSIFI 08/15/2016 LAKESHA FONSECA JOURNEYMAN PIPE FITTER Ot R05 COUGH 08/15/2016 LAKESHA FONSECA JOURNEYMAN PIPE FITTER Ot R06.02 SHORTNESS OF BREATH 08/15/2016 LAKESHA FONSECA JOURNEYMAN PIPE FITTER Ot Z79.01 RESIDENTIAL (CURRENT) USE OF ANTICOAGULANT 08/15/2016 LAKESHA FONSECA JOURNEYMAN PIPE FITTER Ot I26.99 OTHER PULMONARY EMBOLISM WITHOUT ACUTE C 08/15/2016 LAKESHA FONSECA JOURNEYMAN PIPE FITTER Ot I82.411 ACUTE EMBOLISM AND THROMBOSIS OF RIGHT F 08/15/2016 LAKESHA FONSECA JOURNEYMAN PIPE FITTER Ot I82.431 ACUTE EMBOLISM AND THROMBOSIS OF RIGHT P 08/15/2016 LAKESHA FONSECA JOURNEYMAN PIPE FITTER Ot J90 PLEURAL EFFUSION, NOT ELSEWHERE CLASSIFI 08/15/2016 LAKESHA FONSECA JOURNEYMAN PIPE FITTER Ot R05 COUGH 08/15/2016 LAKESHA FONSECA JOURNEYMAN PIPE FITTER Ot R06.02 SHORTNESS OF BREATH 08/15/2016 LAKESHA FONSECA JOURNEYMAN PIPE FITTER Ot 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 08/31/2016 KRISTA HURST, SHANE R Ot 780.60 FEVER, UNSPECIFIED 08/31/2016 KRISTA HURST SHANE R Ot 780.8 GENERALIZED HYPERHIDROSIS 08/31/2016 KRISTA HURST SHANE R Ot 780.60 FEVER, UNSPECIFIED 08/31/2016 KRISTA HURST SHANE R Ot 780.8 GENERALIZED HYPERHIDROSIS 08/31/2016 KRISTA HURST, SHANE R Ot R91.8 OTHER NONSPECIFIC ABNORMAL FINDING OF GERALDINE 08/31/2016 KRISTA HURST, SHANE R Ot R04.2 HEMOPTYSIS 08/31/2016 KRISTA HURST, SHANE R Ot Z86.711 PERSONAL HISTORY OF PULMONARY EMBOLISM 08/31/2016 LAKESHA FONSECA JOURNEYMAN PIPE FITTER Ot I26.99 OTHER PULMONARY EMBOLISM WITHOUT ACUTE C 08/31/2016 LAKESHA FONSECA JOURNEYMAN PIPE FITTER Ot I82.409 ACUTE EMBOLISM AND THOMBOS UNSP DEEP VN 08/31/2016 LAKESHA FONSECA JOURNEYMAN PIPE FITTER Ot J90 PLEURAL EFFUSION, NOT ELSEWHERE CLASSIFI 08/31/2016 RAYMUNDOELLALAKESHA E JOURNEYMAN PIPE FITTER Ot R05 COUGH 08/31/2016 RAYMUNDO LAKESHA E JOURNEYMAN PIPE FITTER Ot R06.02 SHORTNESS OF BREATH 08/31/2016 ELLA FONSECAINE E JOURNEYMAN PIPE FITTER Ot Z79.01 RESIDENTIAL (CURRENT) USE OF ANTICOAGULANT 08/31/2016 RAYMUNDOELLA WALDENINE E JOURNEYMAN PIPE FITTER Ot I26.99 OTHER PULMONARY EMBOLISM WITHOUT ACUTE C 08/31/2016 RAYMUNDOELLA WALDENINE E JOURNEYMAN PIPE FITTER Ot I82.411 ACUTE EMBOLISM AND THROMBOSIS OF RIGHT F 08/31/2016 RAYMUNDOELLA WALDENINE E JOURNEYMAN PIPE FITTER Ot I82.431 ACUTE EMBOLISM AND THROMBOSIS OF RIGHT P 08/31/2016 RAYMUNDOELLA WALDENINE E JOURNEYMAN PIPE FITTER Ot J90 PLEURAL EFFUSION, NOT ELSEWHERE CLASSIFI 08/31/2016 RAYMUNDOELLA WALDENINE E JOURNEYMAN PIPE FITTER Ot R05 COUGH 08/31/2016 RAYMUNDO, LAKESHA E JOURNEYMAN PIPE FITTER Ot R06.02 SHORTNESS OF BREATH 08/31/2016 ELLA FONSECAINE E JOURNEYMAN PIPE FITTER Ot Z79.01 RESIDENTIAL (CURRENT) USE OF ANTICOAGULANT 09/14/2016 RAYMUNDOELLA WALDENINE E JOURNEYMAN PIPE FITTER Ot I26.99 OTHER PULMONARY EMBOLISM WITHOUT ACUTE C 09/14/2016 ELLA FONSECAINE Kim JOURNEYMAN PIPE FITTER Ot J90 PLEURAL EFFUSION, NOT ELSEWHERE CLASSIFI 09/14/2016 RAYMUNDO LAKESHA E JOURNEYMAN PIPE FITTER Ot R05 COUGH 09/14/2016 ELLA FONSECAINE Kim JOURNEYMAN PIPE FITTER Ot R06.02 SHORTNESS OF BREATH 09/14/2016 ELLA FONSECAINE E JOURNEYMAN PIPE FITTER Ot 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 09/14/2016 RAYMUNDOELLALAKESHA E JOURNEYMAN PIPE FITTER Ot I26.99 OTHER PULMONARY EMBOLISM WITHOUT ACUTE C 09/14/2016 RAYMUNDOELLALAKESHA E JOURNEYMAN PIPE FITTER Ot J90 PLEURAL EFFUSION, NOT ELSEWHERE CLASSIFI 09/14/2016 RAYMUNDO LAKESHA E JOURNEYMAN PIPE FITTER Ot R05 COUGH 09/14/2016 RAYMUNDO LAKESHA E JOURNEYMAN PIPE FITTER Ot R06.02 SHORTNESS OF BREATH 09/14/2016 RAYMUNDO, LAKESHA E JOURNEYMAN PIPE FITTER Ot Z79.01 RESIDENTIAL (CURRENT) USE OF ANTICOAGULANT 09/22/2016 RAYMUNDO, LAKESHA E JOURNEYMAN PIPE FITTER Ot I26.99 OTHER PULMONARY EMBOLISM WITHOUT ACUTE C 09/22/2016 LAKESHA FONSECA JOURNEYMAN PIPE FITTER Ot J90 PLEURAL EFFUSION, NOT ELSEWHERE CLASSIFI 09/22/2016 LAKESHA FONSECA JOURNEYMAN PIPE FITTER Ot R05 COUGH 09/22/2016 LAKESHA FONSECA JOURNEYMAN PIPE FITTER Ot R06.02 SHORTNESS OF BREATH 09/22/2016 LAKESHA FONSECA JOURNEYMAN PIPE FITTER Ot 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 09/22/2016 KRISTA HURST, SHANE R Ot 780.60 FEVER, UNSPECIFIED 09/22/2016 KRISTA HURST, SHANE R Ot 780.8 GENERALIZED HYPERHIDROSIS 09/22/2016 KRISTA HURST, SHANE R Ot 780.60 FEVER, UNSPECIFIED 09/22/2016 KRISTA HURST, SHANE R Ot 780.8 GENERALIZED HYPERHIDROSIS 09/22/2016 KRISTA HURST, SHANE R Ot R91.8 OTHER NONSPECIFIC ABNORMAL FINDING OF GERALDINE 09/22/2016 KRISTA HURST, SHANE R Ot R04.2 HEMOPTYSIS 09/22/2016 KRISTA HURST, SHANE R Ot Z86.711 PERSONAL HISTORY OF PULMONARY EMBOLISM 09/22/2016 LAKESHA FONSECA JOURNEYMAN PIPE FITTER Ot I26.99 OTHER PULMONARY EMBOLISM WITHOUT ACUTE C 09/22/2016 LAKESHA FONSECA JOURNEYMAN PIPE FITTER Ot J90 PLEURAL EFFUSION, NOT ELSEWHERE CLASSIFI 09/22/2016 LAKESHA FONSECA JOURNEYMAN PIPE FITTER Ot R05 COUGH 09/22/2016 LAKESHA FONSECA JOURNEYMAN PIPE FITTER Ot R06.02 SHORTNESS OF BREATH 09/22/2016 LAKESHA FONSECA JOURNEYMAN PIPE FITTER Ot Z79.01 RESIDENTIAL (CURRENT) USE OF ANTICOAGULANT 09/22/2016 LAKESHA FONSECA JOURNEYMAN PIPE FITTER Ot I26.99 OTHER PULMONARY EMBOLISM WITHOUT ACUTE C 09/22/2016 LAKESHA FONSECA JOURNEYMAN PIPE FITTER Ot I82.411 ACUTE EMBOLISM AND THROMBOSIS OF RIGHT F 09/22/2016 LAKESHA FONSECA JOURNEYMAN PIPE FITTER Ot I82.431 ACUTE EMBOLISM AND THROMBOSIS OF RIGHT P 09/22/2016 LAKESHA FONSECA JOURNEYMAN PIPE FITTER Ot J90 PLEURAL EFFUSION, NOT ELSEWHERE CLASSIFI 09/22/2016 LAKESHA FONSECA JOURNEYMAN PIPE FITTER Ot R05 COUGH 09/22/2016 LAKESHA FONSECA JOURNEYMAN PIPE FITTER Ot R06.02 SHORTNESS OF BREATH 09/22/2016 LAKESHA FONSECA JOURNEYMAN PIPE FITTER Ot 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 11/17/2016 KRISTA HURST SHANE R Ot 780.60 FEVER, UNSPECIFIED 11/17/2016 KRISTA HURST SHANE R Ot 780.8 GENERALIZED HYPERHIDROSIS 11/17/2016 KRISTA HURST SHANE R Ot 780.60 FEVER, UNSPECIFIED 11/17/2016 KRISTA HURST SHANE R Ot 780.8 GENERALIZED HYPERHIDROSIS 11/17/2016 KRISTA HURST SHANE R Ot R91.8 OTHER NONSPECIFIC ABNORMAL FINDING OF GERALDINE 11/17/2016 KRISTA HURST SHANE R Ot R04.2 HEMOPTYSIS 11/17/2016 KRISTA HURST SHANE R Ot Z86.711 PERSONAL HISTORY OF PULMONARY EMBOLISM 11/17/2016 LAKESHA FONSECA JOURNEYMAN PIPE FITTER Ot I26.99 OTHER PULMONARY EMBOLISM WITHOUT ACUTE C 11/17/2016 LAKESHA FONSECA JOURNEYMAN PIPE FITTER Ot J90 PLEURAL EFFUSION, NOT ELSEWHERE CLASSIFI 11/17/2016 LAKESHA FONSECA JOURNEYMAN PIPE FITTER Ot R05 COUGH 11/17/2016 LAKESHA FONSECA JOURNEYMAN PIPE FITTER Ot R06.02 SHORTNESS OF BREATH 11/17/2016 LAKESHA FONSECA APRN Ot Z79.01 RESIDENTIAL (CURRENT) USE OF ANTICOAGULANT 11/17/2016 LAKESHA FONSECA JOURNEYMAN PIPE FITTER Ot I26.99 OTHER PULMONARY EMBOLISM WITHOUT ACUTE C 11/17/2016 LAKESHA FONSECA JOURNEYMAN PIPE FITTER Ot I82.411 ACUTE EMBOLISM AND THROMBOSIS OF RIGHT F 11/17/2016 LAKESHA FONSECA JOURNEYMAN PIPE FITTER Ot I82.431 ACUTE EMBOLISM AND THROMBOSIS OF RIGHT P 11/17/2016 LAKESHA FONSECA JOURNEYMAN PIPE FITTER Ot J90 PLEURAL EFFUSION, NOT ELSEWHERE CLASSIFI 11/17/2016 LAKESHA FONSECA JOURNEYMAN PIPE FITTER Ot R05 COUGH 11/17/2016 LAKESHA FONSECA JOURNEYMAN PIPE FITTER Ot R06.02 SHORTNESS OF BREATH 11/17/2016 LAKESHA FONSECA JOURNEYMAN PIPE FITTER Ot 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 01/12/2017 BROCK JOHN DO Ot I26.99 OTHER PULMONARY EMBOLISM WITHOUT ACUTE C 01/17/2017 BROCK JOHN DO Ot I26.99 OTHER PULMONARY EMBOLISM WITHOUT ACUTE C 01/25/2017 Ot J90 PLEURAL EFFUSION, NOT ELSEWHERE CLASSIFI 01/25/2017 Ot M79.89 OTHER SPECIFIED SOFT TISSUE DISORDERS 01/26/2017 SHIRA JOHN DOSON Kulwinder Ot I26.99 OTHER PULMONARY EMBOLISM WITHOUT ACUTE C 02/01/2017 Ot J90 PLEURAL EFFUSION, NOT ELSEWHERE CLASSIFI 02/01/2017 Ot M79.89 OTHER SPECIFIED SOFT TISSUE DISORDERS 04/27/2017 CHURCHLEANNA ANDREWS JOURNEYMAN PIPE FITTER Ot K29.70 GASTRITIS, UNSPECIFIED, WITHOUT BLEEDING 04/27/2017 CHURCHLEANNA ANDREWS JOURNEYMAN PIPE FITTER Ot R10.33 PERIUMBILICAL PAIN 05/01/2017 CHURCHLEANNA ANDREWS JOURNEYMAN PIPE FITTER Ot K29.70 GASTRITIS, UNSPECIFIED, WITHOUT BLEEDING 05/01/2017 CHURCHLEANNA ANDREWS JOURNEYMAN PIPE FITTER Ot R10.33 PERIUMBILICAL PAIN 08/07/2017 LAKESHA FONSECA APRN Ot M79.89 OTHER SPECIFIED SOFT TISSUE DISORDERS 08/07/2017 LAKESHA FONSECA APRN Ot R06.02 SHORTNESS OF BREATH 08/07/2017 LAKESHA FONSECA APRN Ot Z86.718 PERSONAL HISTORY OF OTHER VENOUS THROMBO 08/10/2017 LAKESHA FONSECA JOURNEYMAN PIPE FITTER Ot M79.89 OTHER SPECIFIED SOFT TISSUE DISORDERS 08/10/2017 LAKESHA FONSECA APRN Ot R06.02 SHORTNESS OF BREATH 08/10/2017 LAKESHA FONSECA APRN Ot Z86.718 PERSONAL HISTORY OF OTHER VENOUS THROMBO 08/18/2017 SHANE VELASCO MD R Ot 780.60 FEVER, UNSPECIFIED 08/18/2017 SHANE VELASCO MD R Ot 780.8 GENERALIZED HYPERHIDROSIS 08/18/2017 SHANE VELASCO MD R Ot 780.60 FEVER, UNSPECIFIED 08/18/2017 SHANE VELASCO MD R Ot 780.8 GENERALIZED HYPERHIDROSIS 08/18/2017 SHANE VELASCO MD R Ot R91.8 OTHER NONSPECIFIC ABNORMAL FINDING OF GERALDINE 08/18/2017 SHANE VELASCO MD R Ot R04.2 HEMOPTYSIS 08/18/2017 SHANE VELASCO MD R Ot Z86.711 PERSONAL HISTORY OF PULMONARY EMBOLISM 08/18/2017 LAKESHA FONSECA APRN Ot I26.99 OTHER PULMONARY EMBOLISM WITHOUT ACUTE C 08/18/2017 LAKESHA FONSECA JOURNEYMAN PIPE FITTER Ot J90 PLEURAL EFFUSION, NOT ELSEWHERE CLASSIFI 08/18/2017 LAKESHA FONSECA JOURNEYMAN PIPE FITTER Ot R05 COUGH 08/18/2017 LAKESHA FONSECA JOURNEYMAN PIPE FITTER Ot R06.02 SHORTNESS OF BREATH 08/18/2017 LAKESHA FONSECA JOURNEYMAN PIPE FITTER Ot 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 08/18/2017 LAKESHA FONSECA JOURNEYMAN PIPE FITTER Ot I26.99 OTHER PULMONARY EMBOLISM WITHOUT ACUTE C 08/18/2017 LAKESHA FONSECA JOURNEYMAN PIPE FITTER Ot I82.411 ACUTE EMBOLISM AND THROMBOSIS OF RIGHT F 08/18/2017 LAKESHA FONSECA JOURNEYMAN PIPE FITTER Ot I82.431 ACUTE EMBOLISM AND THROMBOSIS OF RIGHT P 08/18/2017 LAKESHA FONSECA JOURNEYMAN PIPE FITTER Ot J90 PLEURAL EFFUSION, NOT ELSEWHERE CLASSIFI 08/18/2017 RAYUMNDOLAKESHA WALDEN JOURNEYMAN PIPE FITTER Ot R05 COUGH 08/18/2017 LAKESHA FONSECA JOURNEYMAN PIPE FITTER Ot R06.02 SHORTNESS OF BREATH 08/18/2017 LAKESHA FONSECA JOURNEYMAN PIPE FITTER Ot Z79.01 RESIDENTIAL (CURRENT) USE OF ANTICOAGULANT 08/18/2017 BROCK JOHN DO Ot I26.99 OTHER PULMONARY EMBOLISM WITHOUT ACUTE C 08/18/2017 Ot J90 PLEURAL EFFUSION, NOT ELSEWHERE CLASSIFI 08/18/2017 Ot M79.89 OTHER SPECIFIED SOFT TISSUE DISORDERS 08/18/2017 LAKESHA FONSECA JOURNEYMAN PIPE FITTER Ot M79.89 OTHER SPECIFIED SOFT TISSUE DISORDERS 08/18/2017 LAKESHA FONSECA JOURNEYMAN PIPE FITTER Ot R06.02 SHORTNESS OF BREATH 08/18/2017 LAKESHA FONSECA JOURNEYMAN PIPE FITTER Ot Z86.718 PERSONAL HISTORY OF OTHER VENOUS THROMBO 08/23/2017 LAKESHA FONSECA JOURNEYMAN PIPE FITTER Ot M79.89 OTHER SPECIFIED SOFT TISSUE DISORDERS 08/23/2017 LAKESHA FONSECA JOURNEYMAN PIPE FITTER Ot R06.02 SHORTNESS OF BREATH 08/23/2017 LAKESHA FONSECA JOURNEYMAN PIPE FITTER Ot Z86.718 PERSONAL HISTORY OF OTHER VENOUS THROMBO 09/07/2017 LAKESHA FONSECA JOURNEYMAN PIPE FITTER Ot I82.431 ACUTE EMBOLISM AND THROMBOSIS OF RIGHT P 09/14/2017 LAKESHA FONSECA JOURNEYMAN PIPE FITTER Ot I82.431 ACUTE EMBOLISM AND THROMBOSIS OF RIGHT P Procedures There is no data. Results Test Result Range Complete blood count (CBC) with automated white blood cell (WBC) differential - 06/14/16 18:24 Blood leukocytes automated count (number/volume) 12.7 10*3/uL 4.3-11.0 Blood erythrocytes automated count (number/volume) 4.29 10*6/uL 4.35-5.85 Venous blood hemoglobin measurement (mass/volume) 12.8 g/dL 13.3-17.7 Blood hematocrit (volume fraction) 38 % 40-54 Automated erythrocyte mean corpuscular volume 88 [foz_us] 80-99 Automated erythrocyte mean corpuscular hemoglobin (mass per erythrocyte) 30 pg 25-34 Automated erythrocyte mean corpuscular hemoglobin concentration measurement ( mass/volume) 34 g/dL 32-36 Automated erythrocyte distribution width ratio 13.0 % 10.0-14.5 Automated blood platelet count (count/volume) 333 10*3/uL 130-400 Automated blood platelet mean volume measurement 9.6 [foz_us] 7.4-10.4 Automated blood neutrophils/100 leukocytes 78 % 42-75 Automated blood lymphocytes/100 leukocytes 10 % 12-44 Blood monocytes/100 leukocytes 9 % 0-12 Automated blood eosinophils/100 leukocytes 2 % 0-10 Automated blood basophils/100 leukocytes 0 % 0-10 Blood neutrophils automated count (number/volume) 10.0 10*3 1.8-7.8 Blood lymphocytes automated count (number/volume) 1.3 10*3 1.0-4.0 Blood monocytes automated count (number/volume) 1.2 10*3 0.0-1.0 Automated eosinophil count 0.2 10*3/uL 0.0-0.3 Automated blood basophil count (count/volume) 0.0 10*3/uL 0.0-0.1 PT panel in platelet poor plasma by coagulation assay - 06/14/16 18:24 Prothrombin time (PT) in platelet poor plasma by coagulation assay 13.0 s 12.2-14.7 INR in platelet poor plasma or blood by coagulation assay 1.0 0.8-1.4 Activated partial thromboplastin time (aPTT) in platelet poor plasma bycoagulation assay - 06/14/16 18:24 Activated partial thromboplastin time (aPTT) in platelet poor plasma bycoagulation assay 38 s 24-35 Comprehensive metabolic panel - 06/14/16 18:24 Serum or plasma sodium measurement (moles/volume) 138 mmol/L 135-145 Serum or plasma potassium measurement (moles/volume) 3.8 mmol/L 3.6-5.0 Serum or plasma chloride measurement (moles/volume) 104 mmol/L 98-107 Carbon dioxide 26 mmol/L 21-32 Serum or plasma anion gap determination (moles/volume) 8 mmol/L 5-14 Serum or plasma urea nitrogen measurement (mass/volume) 11 mg/dL 7-18 Serum or plasma creatinine measurement (mass/volume) 1.07 mg/dL 0.60-1.30 Serum or plasma urea nitrogen/creatinine mass ratio 10 NRG Serum or plasma creatinine measurement with calculation of estimated glomerular filtration rate > NRG Serum or plasma glucose measurement (mass/volume) 111 mg/dL 70-105 Serum or plasma calcium measurement (mass/volume) 9.1 mg/dL 8.5-10.1 Serum or plasma total bilirubin measurement (mass/volume) 0.6 mg/dL 0.1-1.0 Serum or plasma alkaline phosphatase measurement (enzymatic activity/volume) 80 U/L 40-136 Serum or plasma aspartate aminotransferase measurement (enzymatic activity/ volume) 18 U/L 5-34 Serum or plasma alanine aminotransferase measurement (enzymatic activity/volume ) 17 U/L 0-55 Serum or plasma protein measurement (mass/volume) 7.3 g/dL 6.4-8.2 Serum or plasma albumin measurement (mass/volume) 3.9 g/dL 3.2-4.5 Magnesium - 06/14/16 18:24 Magnesium 1.9 mg/dL 1.8-2.4 Serum or plasma creatine kinase measurement (enzymatic activity/volume) - 06/14 18:24 Serum or plasma creatine kinase measurement (enzymatic activity/volume) 71 U/L 30-200 Serum or plasma amylase measurement (enzymatic activity/volume) - 06/14/16 18: 24 Serum or plasma amylase measurement (enzymatic activity/volume) 29 U /L 25-125 Lipase - 06/14/16 18:24 Lipase 19 U/L 8-78 Serum or plasma lithium measurement (moles/volume) - 06/14/16 18:24 BNP level 18.5 pg/mL <100.0 Serum or plasma creatine kinase MB measurement (enzymatic activity/volume) - 18:24 Serum or plasma creatine kinase MB measurement (enzymatic activity/volume) 1.4 ng/mL <6.6 Serum or plasma troponin i.cardiac measurement (mass/volume) - 06/14/16 18:24 Serum or plasma troponin i.cardiac measurement (mass/volume) < ng/ mL <0.30 Blood lactic acid measurement (moles/volume) - 06/14/16 18:30 Blood lactic acid measurement (moles/volume) 1.0 mmol/L 0.5-2.0 Bacterial blood culture - 06/14/16 18:30 Bacterial blood culture NG NRG Bacterial blood culture - 06/14/16 18:42 Bacterial blood culture NG NRG Arterial blood gas measurement - 06/14/16 18:45 Blood pCO2 34 mm[Hg] 35-45 Blood pO2 79 mm[Hg] 79-93 Arterial blood bicarbonate measurement (moles/volume) 23 mmol/L 23-27 Arterial blood base excess by calculation -0.8 mmol/L - 2.5-2.5 Arterial blood oxygen saturation measurement 96 % 94-100 * Inhaled oxygen flow rate 2 NRG Arterial blood pH measurement with patient temperature correction 7.44 7.37-7.43 Arterial blood carbon dioxide, total measurement (moles/volume) 23.5 mmol/L 21.0-31.0 Body site RIGHT RADIAL NRG Assessment of wrist artery patency prior to arterial puncture POSITIVE NRG Setting of ventilation mode NO NRG Measurement of body temperature 100 NRG Methicillin resistant Staphylococcus aureus (MRSA) screening culture - 21:10 MRSA SCREEN RESULT MRSA ISOLATED NRG Activated partial thromboplastin time (aPTT) in platelet poor plasma bycoagulation assay - 06/15/16 03:42 Activated partial thromboplastin time (aPTT) in platelet poor plasma bycoagulation assay 147 s 24-35 Comprehensive metabolic panel - 06/15/16 03:42 Serum or plasma sodium measurement (moles/volume) 137 mmol/L 135-145 Serum or plasma potassium measurement (moles/volume) 4.2 mmol/L 3.6-5.0 Serum or plasma chloride measurement (moles/volume) 99 mmol/L 98-107 Carbon dioxide 25 mmol/L 21-32 Serum or plasma anion gap determination (moles/volume) 13 mmol/L 5-14 Serum or plasma urea nitrogen measurement (mass/volume) 12 mg/dL 7-18 Serum or plasma creatinine measurement (mass/volume) 1.16 mg/dL 0.60-1.30 Serum or plasma urea nitrogen/creatinine mass ratio 10 NRG Serum or plasma creatinine measurement with calculation of estimated glomerular filtration rate > NRG Serum or plasma glucose measurement (mass/volume) 188 mg/dL 70-105 Serum or plasma calcium measurement (mass/volume) 9.6 mg/dL 8.5-10.1 Serum or plasma total bilirubin measurement (mass/volume) 0.6 mg/dL 0.1-1.0 Serum or plasma alkaline phosphatase measurement (enzymatic activity/volume) 70 U/L 40-136 Serum or plasma aspartate aminotransferase measurement (enzymatic activity/ volume) 17 U/L 5-34 Serum or plasma alanine aminotransferase measurement (enzymatic activity/volume ) 18 U/L 0-55 Serum or plasma protein measurement (mass/volume) 7.4 g/dL 6.4-8.2 Serum or plasma albumin measurement (mass/volume) 3.7 g/dL 3.2-4.5 Serum or plasma phosphate measurement (mass/volume) - 06/15/16 03:42 Serum or plasma phosphate measurement (mass/volume) 3.1 mg/dL 2.3-4.7 Magnesium - 06/15/16 03:42 Magnesium 2.0 mg/dL 1.8-2.4 Complete blood count (CBC) with automated white blood cell (WBC) differential - 06/15/16 03:42 Blood leukocytes automated count (number/volume) 13.1 10*3/uL 4.3-11.0 Blood erythrocytes automated count (number/volume) 4.29 10*6/uL 4.35-5.85 Venous blood hemoglobin measurement (mass/volume) 12.6 g/dL 13.3-17.7 Blood hematocrit (volume fraction) 37 % 40-54 Automated erythrocyte mean corpuscular volume 87 [foz_us] 80-99 Automated erythrocyte mean corpuscular hemoglobin (mass per erythrocyte) 29 pg 25-34 Automated erythrocyte mean corpuscular hemoglobin concentration measurement ( mass/volume) 34 g/dL 32-36 Automated erythrocyte distribution width ratio 13.0 % 10.0-14.5 Automated blood platelet count (count/volume) 319 10*3/uL 130-400 Automated blood platelet mean volume measurement 10.3 [foz_us] 7.4-10.4 Automated blood neutrophils/100 leukocytes 89 % 42-75 Automated blood lymphocytes/100 leukocytes 6 % 12-44 Blood monocytes/100 leukocytes 5 % 0-12 Automated blood eosinophils/100 leukocytes 0 % 0-10 Automated blood basophils/100 leukocytes 0 % 0-10 Blood neutrophils automated count (number/volume) 11.7 10*3 1.8-7.8 Blood lymphocytes automated count (number/volume) 0.7 10*3 1.0-4.0 Blood monocytes automated count (number/volume) 0.7 10*3 0.0-1.0 Automated eosinophil count 0.0 10*3/uL 0.0-0.3 Automated blood basophil count (count/volume) 0.0 10*3/uL 0.0-0.1 Complete blood count (CBC) with automated white blood cell (WBC) differential - 06/16/16 04:30 Blood leukocytes automated count (number/volume) 12.7 10*3/uL 4.3-11.0 Blood erythrocytes automated count (number/volume) 4.11 10*6/uL 4.35-5.85 Venous blood hemoglobin measurement (mass/volume) 12.1 g/dL 13.3-17.7 Blood hematocrit (volume fraction) 36 % 40-54 Automated erythrocyte mean corpuscular volume 89 [foz_us] 80-99 Automated erythrocyte mean corpuscular hemoglobin (mass per erythrocyte) 29 pg 25-34 Automated erythrocyte mean corpuscular hemoglobin concentration measurement ( mass/volume) 33 g/dL 32-36 Automated erythrocyte distribution width ratio 12.7 % 10.0-14.5 Automated blood platelet count (count/volume) 323 10*3/uL 130-400 Automated blood platelet mean volume measurement 9.9 [foz_us] 7.4-10.4 Automated blood neutrophils/100 leukocytes 80 % 42-75 Automated blood lymphocytes/100 leukocytes 12 % 12-44 Blood monocytes/100 leukocytes 8 % 0-12 Automated blood eosinophils/100 leukocytes 0 % 0-10 Automated blood basophils/100 leukocytes 0 % 0-10 Blood neutrophils automated count (number/volume) 10.1 10*3 1.8-7.8 Blood lymphocytes automated count (number/volume) 1.5 10*3 1.0-4.0 Blood monocytes automated count (number/volume) 1.0 10*3 0.0-1.0 Automated eosinophil count 0.0 10*3/uL 0.0-0.3 Automated blood basophil count (count/volume) 0.0 10*3/uL 0.0-0.1 Whole blood basic metabolic panel - 06/16/16 04:30 Serum or plasma sodium measurement (moles/volume) 134 mmol/L 135-145 Serum or plasma potassium measurement (moles/volume) 3.7 mmol/L 3.6-5.0 Serum or plasma chloride measurement (moles/volume) 97 mmol/L 98-107 Carbon dioxide 26 mmol/L 21-32 Serum or plasma anion gap determination (moles/volume) 11 mmol/L 5-14 Serum or plasma urea nitrogen measurement (mass/volume) 20 mg/dL 7-18 Serum or plasma creatinine measurement (mass/volume) 1.03 mg/dL 0.60-1.30 Serum or plasma urea nitrogen/creatinine mass ratio 19 NRG Serum or plasma creatinine measurement with calculation of estimated glomerular filtration rate > NRG Serum or plasma glucose measurement (mass/volume) 120 mg/dL 70-105 Serum or plasma calcium measurement (mass/volume) 9.0 mg/dL 8.5-10.1 Serum or plasma phosphate measurement (mass/volume) - 06/16/16 04:30 Serum or plasma phosphate measurement (mass/volume) 3.2 mg/dL 2.3-4.7 Magnesium - 06/16/16 04:30 Magnesium 2.1 mg/dL 1.8-2.4 Complete blood count (CBC) with automated white blood cell (WBC) differential - 06/17/16 04:54 Blood leukocytes automated count (number/volume) 9.4 10*3/uL 4.3-11.0 Blood erythrocytes automated count (number/volume) 4.01 10*6/uL 4.35-5.85 Venous blood hemoglobin measurement (mass/volume) 11.8 g/dL 13.3-17.7 Blood hematocrit (volume fraction) 36 % 40-54 Automated erythrocyte mean corpuscular volume 89 [foz_us] 80-99 Automated erythrocyte mean corpuscular hemoglobin (mass per erythrocyte) 29 pg 25-34 Automated erythrocyte mean corpuscular hemoglobin concentration measurement ( mass/volume) 33 g/dL 32-36 Automated erythrocyte distribution width ratio 12.6 % 10.0-14.5 Automated blood platelet count (count/volume) 306 10*3/uL 130-400 Automated blood platelet mean volume measurement 9.6 [foz_us] 7.4-10.4 Automated blood neutrophils/100 leukocytes 74 % 42-75 Automated blood lymphocytes/100 leukocytes 14 % 12-44 Blood monocytes/100 leukocytes 10 % 0-12 Automated blood eosinophils/100 leukocytes 2 % 0-10 Automated blood basophils/100 leukocytes 0 % 0-10 Blood neutrophils automated count (number/volume) 7.0 10*3 1.8-7.8 Blood lymphocytes automated count (number/volume) 1.3 10*3 1.0-4.0 Blood monocytes automated count (number/volume) 0.9 10*3 0.0-1.0 Automated eosinophil count 0.2 10*3/uL 0.0-0.3 Automated blood basophil count (count/volume) 0.0 10*3/uL 0.0-0.1 Whole blood basic metabolic panel - 06/17/16 04:54 Serum or plasma sodium measurement (moles/volume) 137 mmol/L 135-145 Serum or plasma potassium measurement (moles/volume) 4.0 mmol/L 3.6-5.0 Serum or plasma chloride measurement (moles/volume) 99 mmol/L 98-107 Carbon dioxide 28 mmol/L 21-32 Serum or plasma anion gap determination (moles/volume) 10 mmol/L 5-14 Serum or plasma urea nitrogen measurement (mass/volume) 15 mg/dL 7-18 Serum or plasma creatinine measurement (mass/volume) 0.98 mg/dL 0.60-1.30 Serum or plasma urea nitrogen/creatinine mass ratio 15 NRG Serum or plasma creatinine measurement with calculation of estimated glomerular filtration rate > NRG Serum or plasma glucose measurement (mass/volume) 116 mg/dL 70-105 Serum or plasma calcium measurement (mass/volume) 9.3 mg/dL 8.5-10.1 Serum or plasma phosphate measurement (mass/volume) - 06/17/16 04:54 Serum or plasma phosphate measurement (mass/volume) 3.2 mg/dL 2.3-4.7 Magnesium - 06/17/16 04:54 Magnesium 2.3 mg/dL 1.8-2.4 Blood or tissue F5 gene p.R506Q detection by molecular genetics method - 08/05/ 16 07:15 Blood or tissue F5 gene p.R506Q detection by molecular genetics method Negative Negative Coagulation factor 5 activated measurement (units/volume) in platelet poor plasma by coagulation assay See Footnote NRG Complete blood count (CBC) with automated white blood cell (WBC) differential - 07/07/16 18:05 Blood leukocytes automated count (number/volume) 9.3 10*3/uL 4.3-11.0 Blood erythrocytes automated count (number/volume) 4.35 10*6/uL 4.35-5.85 Venous blood hemoglobin measurement (mass/volume) 12.6 g/dL 13.3-17.7 Blood hematocrit (volume fraction) 38 % 40-54 Automated erythrocyte mean corpuscular volume 88 [foz_us] 80-99 Automated erythrocyte mean corpuscular hemoglobin (mass per erythrocyte) 29 pg 25-34 Automated erythrocyte mean corpuscular hemoglobin concentration measurement ( mass/volume) 33 g/dL 32-36 Automated erythrocyte distribution width ratio 13.3 % 10.0-14.5 Automated blood platelet count (count/volume) 418 10*3/uL 130-400 Automated blood platelet mean volume measurement 9.4 [foz_us] 7.4-10.4 Automated blood neutrophils/100 leukocytes 55 % 42-75 Automated blood lymphocytes/100 leukocytes 31 % 12-44 Blood monocytes/100 leukocytes 8 % 0-12 Automated blood eosinophils/100 leukocytes 4 % 0-10 Automated blood basophils/100 leukocytes 1 % 0-10 Blood neutrophils automated count (number/volume) 5.1 10*3 1.8-7.8 Blood lymphocytes automated count (number/volume) 2.9 10*3 1.0-4.0 Blood monocytes automated count (number/volume) 0.8 10*3 0.0-1.0 Automated eosinophil count 0.4 10*3/uL 0.0-0.3 Automated blood basophil count (count/volume) 0.1 10*3/uL 0.0-0.1 Serum or plasma lithium measurement (moles/volume) - 07/07/16 18:05 BNP level 12.9 pg/mL <100.0 Complete urinalysis with reflex to culture - 04/27/17 16:22 Urine color determination YELLOW NRG Urine clarity determination CLEAR NRG Urine pH measurement by test strip 5 5-9 Specific gravity of urine by test strip 1.025 1.016- 1.022 Urine protein assay by test strip, semi-quantitative 2+ NEGATIVE Urine glucose detection by automated test strip NEGATIVE NEGATIVE Erythrocytes detection in urine sediment by light microscopy NEGATIVE NEGATIVE Urine ketones detection by automated test strip NEGATIVE NEGATIVE Urine nitrite detection by test strip NEGATIVE NEGATIVE Urine total bilirubin detection by test strip NEGATIVE NEGATIVE Urine urobilinogen measurement by automated test strip (mass/volume) NORMAL NORMAL Urine leukocyte esterase detection by dipstick 1+ NEGATIVE Automated urine sediment erythrocyte count by microscopy (number/high power field) NONE NRG Automated urine sediment leukocyte count by microscopy (number/high power field ) [HPF] NRG Bacteria detection in urine sediment by light microscopy NEGATIVE NRG Squamous epithelial cells detection in urine sediment by light microscopy NONE NRG Crystals detection in urine sediment by light microscopy NONE NRG Casts detection in urine sediment by light microscopy NONE NRG Mucus detection in urine sediment by light microscopy LARGE NRG Complete urinalysis with reflex to culture NO NRG Complete blood count (CBC) with automated white blood cell (WBC) differential - 04/27/17 16:46 Blood leukocytes automated count (number/volume) 7.3 10*3/uL 4.3-11.0 Blood erythrocytes automated count (number/volume) 4.57 10*6/uL 4.35-5.85 Venous blood hemoglobin measurement (mass/volume) 13.8 g/dL 13.3-17.7 Blood hematocrit (volume fraction) 41 % 40-54 Automated erythrocyte mean corpuscular volume 89 [foz_us] 80-99 Automated erythrocyte mean corpuscular hemoglobin (mass per erythrocyte) 30 pg 25-34 Automated erythrocyte mean corpuscular hemoglobin concentration measurement ( mass/volume) 34 g/dL 32-36 Automated erythrocyte distribution width ratio 12.9 % 10.0-14.5 Automated blood platelet count (count/volume) 202 10*3/uL 130-400 Automated blood platelet mean volume measurement 10.4 [foz_us] 7.4-10.4 Automated blood neutrophils/100 leukocytes 51 % 42-75 Automated blood lymphocytes/100 leukocytes 33 % 12-44 Blood monocytes/100 leukocytes 11 % 0-12 Automated blood eosinophils/100 leukocytes 3 % 0-10 Automated blood basophils/100 leukocytes 2 % 0-10 Blood neutrophils automated count (number/volume) 3.7 10*3 1.8-7.8 Blood lymphocytes automated count (number/volume) 2.4 10*3 1.0-4.0 Blood monocytes automated count (number/volume) 0.8 10*3 0.0-1.0 Automated eosinophil count 0.2 10*3/uL 0.0-0.3 Automated blood basophil count (count/volume) 0.2 10*3/uL 0.0-0.1 Comprehensive metabolic panel - 04/27/17 16:46 Serum or plasma sodium measurement (moles/volume) 138 mmol/L 135-145 Serum or plasma potassium measurement (moles/volume) 3.8 mmol/L 3.6-5.0 Serum or plasma chloride measurement (moles/volume) 103 mmol/L 98-107 Carbon dioxide 24 mmol/L 21-32 Serum or plasma anion gap determination (moles/volume) 11 mmol/L 5-14 Serum or plasma urea nitrogen measurement (mass/volume) 15 mg/dL 7-18 Serum or plasma creatinine measurement (mass/volume) 0.95 mg/dL 0.60-1.30 Serum or plasma urea nitrogen/creatinine mass ratio 16 0 -20 Serum or plasma creatinine measurement with calculation of estimated glomerular filtration rate > NRG Serum or plasma glucose measurement (mass/volume) 113 mg/dL 70-105 Serum or plasma calcium measurement (mass/volume) 9.1 mg/dL 8.5-10.1 Serum or plasma total bilirubin measurement (mass/volume) 0.6 mg/dL 0.1-1.0 Serum or plasma alkaline phosphatase measurement (enzymatic activity/volume) 76 U/L 40-136 Serum or plasma aspartate aminotransferase measurement (enzymatic activity/ volume) 21 U/L 5-34 Serum or plasma alanine aminotransferase measurement (enzymatic activity/volume ) 22 U/L 0-55 Serum or plasma protein measurement (mass/volume) 6.3 g/dL 6.4-8.2 Serum or plasma albumin measurement (mass/volume) 4.0 g/dL 3.2-4.5 Lipase - 04/27/17 16:46 Lipase 25 U/L 8-78 Serum or plasma creatine kinase measurement (enzymatic activity/volume) - 04/27 16:46 Serum or plasma creatine kinase measurement (enzymatic activity/volume) 68 U/L 30-200 Comprehensive metabolic panel - 08/04/17 08:57 Serum or plasma sodium measurement (moles/volume) 139 mmol/L 135-145 Serum or plasma potassium measurement (moles/volume) 4.1 mmol/L 3.6-5.0 Serum or plasma chloride measurement (moles/volume) 105 mmol/L 98-107 Carbon dioxide 26 mmol/L 21-32 Serum or plasma anion gap determination (moles/volume) 8 mmol/L 5-14 Serum or plasma urea nitrogen measurement (mass/volume) 16 mg/dL 7-18 Serum or plasma creatinine measurement (mass/volume) 1.04 mg/dL 0.60-1.30 Serum or plasma urea nitrogen/creatinine mass ratio 15 NRG Serum or plasma creatinine measurement with calculation of estimated glomerular filtration rate > NRG Serum or plasma glucose measurement (mass/volume) 106 mg/dL 70-105 Serum or plasma calcium measurement (mass/volume) 9.4 mg/dL 8.5-10.1 Serum or plasma total bilirubin measurement (mass/volume) 0.6 mg/dL 0.1-1.0 Serum or plasma alkaline phosphatase measurement (enzymatic activity/volume) 64 U/L 40-136 Serum or plasma aspartate aminotransferase measurement (enzymatic activity/ volume) 26 U/L 5-34 Serum or plasma alanine aminotransferase measurement (enzymatic activity/volume ) 32 U/L 0-55 Serum or plasma protein measurement (mass/volume) 7.4 g/dL 6.4-8.2 Serum or plasma albumin measurement (mass/volume) 4.0 g/dL 3.2-4.5 Complete blood count (CBC) with automated white blood cell (WBC) differential - 05/31/18 14:00 Blood leukocytes automated count (number/volume) 8.6 10*3/uL 4.3-11.0 Blood erythrocytes automated count (number/volume) 4.88 10*6/uL 4.35-5.85 Venous blood hemoglobin measurement (mass/volume) 15.0 g/dL 13.3-17.7 Blood hematocrit (volume fraction) 44 % 40-54 Automated erythrocyte mean corpuscular volume 90 [foz_us] 80-99 Automated erythrocyte mean corpuscular hemoglobin (mass per erythrocyte) 31 pg 25-34 Automated erythrocyte mean corpuscular hemoglobin concentration measurement ( mass/volume) 34 g/dL 32-36 Automated erythrocyte distribution width ratio 13.5 % 10.0-14.5 Automated blood platelet count (count/volume) 229 10*3/uL 130-400 Automated blood platelet mean volume measurement 10.2 [foz_us] 7.4-10.4 Automated blood neutrophils/100 leukocytes 66 % 42-75 Automated blood lymphocytes/100 leukocytes 23 % 12-44 Blood monocytes/100 leukocytes 8 % 0-12 Automated blood eosinophils/100 leukocytes 2 % 0-10 Automated blood basophils/100 leukocytes 1 % 0-10 Blood neutrophils automated count (number/volume) 5.7 10*3 1.8-7.8 Blood lymphocytes automated count (number/volume) 2.0 10*3 1.0-4.0 Blood monocytes automated count (number/volume) 0.7 10*3 0.0-1.0 Automated eosinophil count 0.2 10*3/uL 0.0-0.3 Automated blood basophil count (count/volume) 0.1 10*3/uL 0.0-0.1 Encounters ACCT No. Visit Date/Time Discharge Status Pt. Type Provider Facility Loc./Unit Complaint [id number] 09/06/2017 09:09:00 09/06/2017 23:59:59 CLS Outpatient LAKESHA FONSECA [facility] [employer] [facility] RAD LEG SWELLING [id number] 08/04/2017 08:43:00 08/04/2017 23:59:59 CLS Outpatient LAKESHA FONSECA [employer] [facility] LAB M79.89,R06.02, Z86.718 [id number] 04/27/2017 16:00:00 04/27/2017 19:33:00 DIS Emergency LEANNA CHURCH [employer] [facility] ER ABD PAIN [id number] 01/11/2017 08:40:00 01/11/2017 23:59:59 CLS Outpatient BROCK JOHN DO [facility] LAB PE [id number] 08/12/2016 13:13:00 08/12/2016 23:59:59 CLS Outpatient LAKESHA FONSECA [employer] [facility] RAD PLEURAL EFFUSION,PE ,SOB,COUGH [id number] 07/07/2016 17:12:00 07/07/2016 23:59:59 CLS Outpatient LAKESHA FONSECA [employer] [facility] RAD PE,DVT OF LOWER EXTREMITY [id number] 06/30/2016 15:29:00 06/30/2016 23:59:59 CLS Outpatient SHANE VELASCO MD [facility] RAD PULMONARY EMBOLISM [id number] 06/14/2016 20:25:00 06/17/2016 10:15:00 DIS Inpatient SHANE VELASCO MD [facility] 4TH BILATERAL PULMONARY EMBOLI,R>L PLEURAL EFFUSION,PN [id number] 06/06/2016 10:28:00 06/06/2016 23:59:59 CLS Outpatient SHANE VELASCO MD [facility] RAD LL LOBE INFILTRATE [id number] 05/27/2016 20:55:00 05/28/2016 00:31:00 DIS Emergency DEVON DOJAME [facility] ER ABD PAIN [id number] 06/16/2015 18:13:00 06/16/2015 23:59:59 CLS Outpatient SHANE VELASCO MD [facility] RAD FEVER,DIAPHORESIS [id number] 06/15/2015 12:37:00 06/15/2015 23:59:59 CLS Outpatient SHANE VELASCO MD [facility] RAD FEVER,DIAPLASIS [id number] 11/15/2014 15:26:00 11/15/2014 23:59:59 CLS Outpatient RIDINGS, ÁNGEL C [employer] [facility] QUICK [id number] 05/18/2013 21:02:00 05/18/2013 21:30:00 DIS Emergency DEVON DOJAME [facility] ER L KNEE PAIN [id number] 05/31/2018 14:07:00 Document Registration [id number] 01/19/2017 11:46:00 Document Registration
[2018-05-31 14:23] LABS: BACTERIA,URINE TRACE /HPF
[2018-05-31 14:24] LABS: AMORPHOUS SEDIMENT,UR FEW AMOR PHOSPHATE /LPF
[2018-05-31 14:29] LABS: ALANINE AMINOTRANSFERASE 28 U/L (0-55); ALBUMIN 4.3 GM/DL (3.2-4.5); ALKALINE PHOSPHATASE 76 U/L (40-136); BILIRUBIN,TOTAL 0.6 MG/DL (0.1-1.0); BUN/CREATININE RATIO 19; CALCIUM 10.1 MG/DL (8.5-10.1); CARBON DIOXIDE 28 MMOL/L (21-32); CHLORIDE 105 MMOL/L (98-107); CREATININE SERUM 1.08 MG/DL (0.60-1.30); GFR ESTIMATED > 60; GLUCOSE 105 MG/DL (70-105); POTASSIUM 4.5 MMOL/L (3.6-5.0); SODIUM 140 MMOL/L (135-145); TOTAL PROTEIN 7.4 GM/DL (6.4-8.2)
--- NOTE | 2018-05-31 14:39 | Diagnostic Imaging Report ---
INDICATION: Chest pain, history of prior pulmonary embolism. PA and lateral chest obtained at 02:49 p.m. and compared to 06/17/2016. Heart and mediastinal silhouette are normal in appearance. There is no focal infiltrate or pneumothorax or gross pleural fluid. There is some scarring or atelectasis in the right lung base with chronic blunting of the right costophrenic angle. IMPRESSION: No acute process in the chest. There is some mild scarring or atelectasis in the right lung base with chronic-appearing blunting of the right costophrenic angle. There is improved aeration of the lung bases compared to 06/17/2016. Dictated by: Dictated on workstation # [id number]
--- NOTE | 2018-05-31 14:39 | Diagnostic Imaging Report ---
EXAM: RIGHT UPPER QUADRANT ULTRASOUND. DATE: May 31, 2018. COMPARISON: CT abdomen and pelvis April 27, 2017. INDICATION: 57-year-old male, right upper quadrant abdominal pain. PROCEDURE: Two-dimensional grayscale and color Doppler ultrasound examination of the right upper quadrant is performed. FINDINGS: Liver: There is suspicion of diffuse fatty infiltration of the liver, although an image demonstrating the liver and kidney in the same image is not well demonstrated for more optimal assessment. The outer liver contours are not grossly nodular. There is no sonographically demonstrated solid or cystic liver lesion. Bile ducts and gallbladder: There are shadowing gallstones. The gallbladder is not distended. There is no gallbladder wall thickening. There is no pericholecystic fluid. The gallbladder wall measures 0.2 cm. The common bile duct is not well seen. There is no intrahepatic bile duct dilation. Right kidney: Unremarkable right kidney. No hydronephrosis. The right kidney measures 11.7 cm x 5.9 cm x 6.0 cm. Pancreas: The pancreas is not well seen. IMPRESSION: 1. Cholelithiasis without evidence of acute cholecystitis. 2. Common bile duct is not well visualized. No intrahepatic bile duct dilation. 3. The pancreas is not well seen. 4. Suspicion of mild diffuse fatty infiltration of the liver. Dictated by: Dictated on workstation # [id number]
[2018-05-31 15:06] VITALS: BP 136/81
== END 2018-05-31 15:17 | disposition home or self-care (01) ==
LOC: EDUNIT# 13:16 → ER 13:20
DX: K80.20 Calculus of gallbladder without cholecystitis without obstruction (principal); K21.9 Gastro-esophageal reflux disease without esophagitis; Z80.3 Family history of malignant neoplasm of breast; Z80.1 Family history of malignant neoplasm of trachea, bronchus and lung; Z86.718 Personal history of other venous thrombosis and embolism
CPT/HCPCS: 36415; 71046; 76705; 80053; 81000; 85025; 85379

== ENCOUNTER 2019-02-22 15:33 | Emergency (ER) | payer BC ==
[~2019-02-22] VITALS: Ht 188 cm; Wt 96.6 kg
[2019-02-22 16:05] LABS: BASOPHILS % (AUTO) 0 % (0-10); EOSINOPHILS # (AUTO) 0.1 10^3/uL (0.0-0.3); EOSINOPHILS % (AUTO) 1 % (0-10); HEMATOCRIT 46 % (40-54); HEMOGLOBIN 15.9 G/DL (13.3-17.7); LYMPHOCYTES # (AUTO) 2.2 X 10^3 (1.0-4.0); LYMPHOCYTES % (AUTO) 23 % (12-44); MEAN CORPUSCULAR HEMOGLOBIN 31 PG (25-34); MEAN CORPUSCULAR HGB CONC 35 G/DL (32-36); MEAN CORPUSCULAR VOLUME 89 FL (80-99); MEAN PLATELET VOLUME 9.9 FL (7.4-10.4); MONOCYTES # (AUTO) 1.1 X 10^3 (0.0-1.0); MONOCYTES % (AUTO) 11 % (0-12); NEUTROPHILS # (AUTO) 6.4 X 10^3 (1.8-7.8); NEUTROPHILS % (AUTO) 65 % (42-75); PLATELET COUNT 269 10^3/uL (130-400); RED CELL DISTRIBUTION WIDTH 13.8 % (10.0-14.5); WHITE BLOOD COUNT 9.8 10^3/uL (4.3-11.0)
[2019-02-22 16:25] LABS: ALANINE AMINOTRANSFERASE 28 U/L (0-55); ALBUMIN 4.7 GM/DL (3.2-4.5); ALKALINE PHOSPHATASE 74 U/L (40-136); BUN/CREATININE RATIO 13; CALCIUM 10.3 MG/DL (8.5-10.1); CARBON DIOXIDE 22 MMOL/L (21-32); CHLORIDE 101 MMOL/L (98-107); CREATININE SERUM 1.33 MG/DL (0.60-1.30); GFR ESTIMATED 55; GLUCOSE 104 MG/DL (70-105); SODIUM 139 MMOL/L (135-145); TOTAL PROTEIN 8.6 GM/DL (6.4-8.2)
[2019-02-22 16:38] LABS: FIBRIN DEGRADATION PRODUCTS 0.46 UG/ML (0.00-0.49); INR 1.1 (0.8-1.4); PROTHROMBIN TIME PATIENT 14.3 SEC (12.2-14.7)
[2019-02-22] MEDS ORDERED: SULF1TAB35 PO (16:41)
--- NOTE | 2019-02-22 16:41 | ED Lower Extremity ---
General Chief Complaint: Lower Extremity Stated Complaint: R LEG PAIN;Hx BLOOD CLOTS Nursing Triage Note: PATIENT AMBULATORY TO ER WITH COMPLAINT OF RIGHT LOWER LEG SWELLING, REDNESS AND PAIN. PATIENT STATES PAIN AND SWELLING BEGAN ON MONDAY AND WORSENING THIS WEEK. PATIENT STATES HE HAS A HISTORY OF PREVIOUS PE AND DVT AND HAS BEEN OFF OF BLOOD THINNERS FOR 18 MONTHS. THERE IS +3 EDEMA TO LOWER RIGHT EXTREMITY. THERE IS ERYTHEMA AND SWELLING PRESENT TO CALF AND FOOT AREA. PATIENT WENT TO URGENT CARE BUT WAS SENT TO ER. Nursing Sepsis Screen: No Definite Risk Source: patient Exam Limitations: no limitations History of Present Illness Date Seen by Provider: Feb 22, 2019 Time Seen by Provider: 15:50 Initial Comments 58-year-old male who presents to the emergency room with complaints of right lower leg swelling and redness. He reports that the swelling began 5 days ago and has progressively gotten worse. He's had history of DVT and PE. He has been off of his toe for the past 18 months. He has a job that requires him to travel back and forth to [place] several times a week. He denies shortness of breath at this time. Pain/Injury Location: right leg Allergies and Home Medications Allergies Coded Allergies: No Known Drug Allergies (Unverified , 02/22/19) Home Medications Multivitamin 1 Each Tablet, 1 TAB PO DAILY, (Reported) Sulfamethoxazole/Trimethoprim 1 Each Tablet, 1 EACH PO BID Prescribed by: MOSES BETANCOURT on 02/22/19 1641 Patient Home Medication List Home Medication List Reviewed: Yes Review of Systems Constitutional: see HPI; No chills, No fever Musculoskeletal: see HPI, muscle pain (right calf area) All Other Systems Reviewed Negative Unless Noted: Yes Past Fdkcmso-Knvzuc-Qsswuw Hx Past Med/Social Hx: Reviewed Nursing Past Med/Soc Hx Patient Social History Alcohol Use: Denies Use Recreational Drug Use: No Smoking Status: Never a Smoker 2nd Hand Smoke Exposure: No Recent Foreign Travel: No Contact w/Someone Who Travel: No Recent Infectious Disease Expo: No Recent Hopitalizations: No Physical Abuse: No Sexual Abuse: No Immunizations Up To Date Tetanus Booster (TDap): Unknown PED Vaccines UTD: Yes Seasonal Allergies Seasonal Allergies: Yes (RAGWEED) Past Medical History Surgeries: Yes (RIGHT ANKLE FX/ORIF) Orthopedic, Tonsillectomy Respiratory: Yes Pulmonary Embolism Currently Using CPAP: No Currently Using BIPAP: No Cardiac: Yes Deep Vein Thrombosis Neurological: No Reproductive Disorders: No Sexually Transmitted Disease: No HIV/AIDS: No Genitourinary: No Gastrointestinal: Yes ("IF I EAT LATE, I GET REFLUX") Gastroesophageal Reflux Musculoskeletal: Yes (R ANKLE FX/CHRONIC PAIN) Fractures Endocrine: No HEENT: No Cancer: No Psychosocial: No Integumentary: No Blood Disorders: No Family Medical History Reviewed Nursing Family Hx FH: COPD (chronic obstructive pulmonary disease) 19 FATHER, , Age:78, Onset:Unknown FH: breast cancer G8 SISTER, Onset:Unknown FH: lung cancer 19 FATHER, , Age:78, Onset:Unknown Physical Exam Vital Signs Vital Signs - First Documented 02/22/19 02/22/19 15:37 17:39 Temp 98.3 Pulse 81 Resp 16 B/P (MAP) 140/75 (96) Pulse Ox 97 O2 Delivery Room Air Capillary Refill : Less Than 3 Seconds Height, Weight, BMI Height: 6'2.00" Weight: 213lbs. 0oz. 96.668707qg; 27.5 BMI Method:Stated General Appearance: WD/WN, no apparent distress Cardiovascular: normal peripheral pulses, regular rate, rhythm, no edema, no gallop, no JVD, no murmur Respiratory: chest non-tender, lungs clear, normal breath sounds, no respiratory distress, no accessory muscle use Legs: left leg non-tender, left leg normal inspection, left leg normal range of motion, left leg no evidence of injury; right leg pain, right leg soft tissue tenderness, right leg swelling, right leg other (redness, pain, soft tissue tenderness, swelling to the right inner calf) Neurologic/Tendon: normal sensation, normal motor functions, normal tendon functions, responds to pain, no evidence tendon injury Neurologic/Psychiatric: alert, normal mood/affect, oriented x 3 Skin: normal color, warm/dry Progress/Results/Core Measures Results/Orders Lab Results Laboratory Tests Test 02/22/19 15:55 Range/Units White Blood Count 9.8 4.3-11.0 10^3/uL Red Blood Count 5.17 4.35-5.85 10^6/uL Hemoglobin 15.9 13.3-17.7 G/DL Hematocrit 46 40-54 % Mean Corpuscular Volume 89 80-99 FL Mean Corpuscular Hemoglobin 31 25-34 PG Mean Corpuscular Hemoglobin Concent 35 32-36 G/DL Red Cell Distribution Width 13.8 10.0-14.5 % Platelet Count 269 130-400 10^3/uL Mean Platelet Volume 9.9 7.4-10.4 FL Neutrophils (%) (Auto) 65 42-75 % Lymphocytes (%) (Auto) 23 12-44 % Monocytes (%) (Auto) 11 0-12 % Eosinophils (%) (Auto) 1 0-10 % Basophils (%) (Auto) 0 0-10 % Neutrophils # (Auto) 6.4 1.8-7.8 X 10^3 Lymphocytes # (Auto) 2.2 1.0-4.0 X 10^3 Monocytes # (Auto) 1.1 H 0.0-1.0 X 10^3 Eosinophils # (Auto) 0.1 0.0-0.3 10^3/uL Basophils # (Auto) 0.0 0.0-0.1 10^3/uL Prothrombin Time 14.3 12.2-14.7 SEC INR Comment 1.1 0.8-1.4 Activated Partial Thromboplast Time 40 H 24-35 SEC D-Dimer 0.46 0.00-0.49 UG/ML Sodium Level 139 135-145 MMOL/L Potassium Level 4.0 3.6-5.0 MMOL/L Chloride Level 101 98-107 MMOL/L Carbon Dioxide Level 22 21-32 MMOL/L Anion Gap 16 H 5-14 MMOL/L Blood Urea Nitrogen 17 7-18 MG/DL Creatinine 1.33 H 0.60-1.30 MG/DL Estimat Glomerular Filtration Rate 55 BUN/Creatinine Ratio 13 Glucose Level 104 70-105 MG/DL Calcium Level 10.3 H 8.5-10.1 MG/DL Corrected Calcium 8.5-10.1 MG/DL Total Bilirubin 1.0 0.1-1.0 MG/DL Aspartate Amino Transf (AST/SGOT) 21 5-34 U/L Alanine Aminotransferase (ALT/SGPT) 28 0-55 U/L Alkaline Phosphatase 74 40-136 U/L Total Protein 8.6 H 6.4-8.2 GM/DL Albumin 4.7 H 3.2-4.5 GM/DL My Orders Orders - MOSES BETANCOURT Comprehensive Metabolic Panel (02/22/19 15:55) Cbc With Automated Diff (02/22/19 15:55) Protime With Inr (02/22/19 15:55) Partial Thromboplastin Time (02/22/19 15:55) Fibrin Degradation Products (02/22/19 15:55) Ed Iv/Invasive Line Start (02/22/19 15:55) Vital Signs/I&O 02/22/19 02/22/19 15:37 17:39 Temp 98.3 98.3 Pulse 81 88 Resp 16 16 B/P (MAP) 140/75 (96) 137/81 (99) Pulse Ox 97 O2 Delivery Room Air Room Air Blood Pressure Mean: 96 Progress Progress Note : Progress Note I have seen and evaluated the patient. I've informed him of his laboratory and imaging studies. We will treating him with Keflex for cellulitis. He agrees with plan of care, plans for discharge, return precautions were given. Diagnostic Imaging Diagonstic Imaging: Ultrasound Plain Films/CT/US/NM/MRI: leg Comments NAME: VIVIEN OATES [facility] REC#: [id number] PT STATUS: REG ER : 1960 PHYSICIAN: JAIME CASTRO MD ADMIT DATE: 02/22/19/ER Draft Date of Exam:02/22/19 US VENOUS LOWER EXT RT PROCEDURE: US right lower extremity venous. TECHNIQUE: Multiple real-time grayscale images were obtained over the right lower extremity in various projections. Additional spectral analysis and color Doppler duplex images were also obtained. INDICATION: Right lower extremity swelling and pain. COMPARISON: None. FINDINGS: Visualized deep and superficial venous system is patent. There is no mass or DVT. IMPRESSION: Negative right lower extremity venous Doppler. Dictated on workstation # [id number] Dict: 02/22/19 1632 Trans: 02/22/19 1639 [facility] [place] [id number] Interpreted by: SUHAIL CARSON Electronically signed by: Reviewed: Reviewed by Me Departure Impression Primary Impression: Cellulitis Disposition: 01 HOME, SELF-CARE Condition: Stable/Unchanged Departure-Patient Inst. Decision time for Depature: 16:40 Referrals: SHANE VELASCO MD (PCP/Family) Primary Care Physician Patient Instructions: Cellulitis (Skin Infection), Adult (DC) Add. Discharge Instructions: Take medications as directed. Also take a 81 mg baby aspirin daily until you follow up with Dr. Sun to discuss restarting your Eliquis. Return back to the emergency room for worsening symptoms or concerns as needed. Follow-up with her primary care provider as needed. All discharge instructions reviewed with patient and/or family. Voiced understanding. Scripts Sulfamethoxazole/Trimethoprim (Bactrim Ds Tablet) 1 Each Tablet 1 EACH PO BID for 7 Days, #14 TAB Prov: MOSES BETANCOURT 02/22/19 MOSES BETANCOURT Feb 22, 2019 16:41
[2019-02-22 17:39] VITALS: BP 137/81
== END 2019-02-22 17:39 | disposition home or self-care (01) ==
LOC: EDUNIT# 15:33 → ER 15:34
DX: L03.115 Cellulitis of right lower limb (principal); K21.9 Gastro-esophageal reflux disease without esophagitis; Z86.718 Personal history of other venous thrombosis and embolism; Z86.711 Personal history of pulmonary embolism; Z90.89 Acquired absence of other organs; Z80.1 Family history of malignant neoplasm of trachea, bronchus and lung; Z80.3 Family history of malignant neoplasm of breast
CPT/HCPCS: 36415; 80053; 85025; 85379; 85610; 85730; 93041